=== PATIENT | female | born 1990 | race Caucasian/White ===

== ENCOUNTER 2022-11-07 15:22 | Outpatient (REF) | payer OTHER, SELFPAY ==
--- NOTE | ~2022-11-07 | XR_ITS ---
EXAMINATION: XR HAND/WRIST, RIGHT XR HAND/WRIST, LEFT XR KNEES AP STANDING, BILATERAL XR KNEE, LEFT XR KNEE, RIGHT CLINICAL INFORMATION: Rheumatoid arthritis. COMPARISON: Bilateral knees 02/18/2019. TECHNIQUE: AP bilateral knees standing 1 view. 3 views of each knee. 4 views of each hand. FINDINGS: Bilateral AP Knee: There is mild reduction in medial and lateral compartment joint space both knees. No bony erosive changes, loose bodies or joint effusion seen. Right Knee: There is mild loss of patellofemoral compartment joint space with mild periarticular spurring. No loose body seen. No bony erosive changes. No joint effusion suspected. Left Knee: There is mild loss of patellofemoral compartment joint space with mild periarticular spurring. No joint effusion suspected. No loose bodies or bony erosive changes. Bilateral Hands/Wrists: The joint spaces left hand and left wrist are maintained normal. No extra-articular osteoporosis. No fracture or dislocation. The soft tissues are normal. No abnormal calcification. XR/XR knee standing BI IMPRESSION: 1. Mild degenerative changes bilateral knee.No visible acute fracture, dislocation or subluxation seen. 2. Unremarkable bilateral hand and wrist exam. 3. No loose bodies or joint effusion seen in either knee.
--- NOTE | ~2022-11-07 | XR_ITS ---
EXAMINATION: XR HAND/WRIST, RIGHT XR HAND/WRIST, LEFT XR KNEES AP STANDING, BILATERAL XR KNEE, LEFT XR KNEE, RIGHT CLINICAL INFORMATION: Rheumatoid arthritis. COMPARISON: Bilateral knees 02/18/2019. TECHNIQUE: AP bilateral knees standing 1 view. 3 views of each knee. 4 views of each hand. FINDINGS: Bilateral AP Knee: There is mild reduction in medial and lateral compartment joint space both knees. No bony erosive changes, loose bodies or joint effusion seen. Right Knee: There is mild loss of patellofemoral compartment joint space with mild periarticular spurring. No loose body seen. No bony erosive changes. No joint effusion suspected. Left Knee: There is mild loss of patellofemoral compartment joint space with mild periarticular spurring. No joint effusion suspected. No loose bodies or bony erosive changes. Bilateral Hands/Wrists: The joint spaces left hand and left wrist are maintained normal. No extra-articular osteoporosis. No fracture or dislocation. The soft tissues are normal. No abnormal calcification. XR/XR hand wrist LT IMPRESSION: 1. Mild degenerative changes bilateral knee.No visible acute fracture, dislocation or subluxation seen. 2. Unremarkable bilateral hand and wrist exam. 3. No loose bodies or joint effusion seen in either knee.
--- NOTE | ~2022-11-07 | XR_ITS ---
EXAMINATION: XR HAND/WRIST, RIGHT XR HAND/WRIST, LEFT XR KNEES AP STANDING, BILATERAL XR KNEE, LEFT XR KNEE, RIGHT CLINICAL INFORMATION: Rheumatoid arthritis. COMPARISON: Bilateral knees 02/18/2019. TECHNIQUE: AP bilateral knees standing 1 view. 3 views of each knee. 4 views of each hand. FINDINGS: Bilateral AP Knee: There is mild reduction in medial and lateral compartment joint space both knees. No bony erosive changes, loose bodies or joint effusion seen. Right Knee: There is mild loss of patellofemoral compartment joint space with mild periarticular spurring. No loose body seen. No bony erosive changes. No joint effusion suspected. Left Knee: There is mild loss of patellofemoral compartment joint space with mild periarticular spurring. No joint effusion suspected. No loose bodies or bony erosive changes. Bilateral Hands/Wrists: The joint spaces left hand and left wrist are maintained normal. No extra-articular osteoporosis. No fracture or dislocation. The soft tissues are normal. No abnormal calcification. XR/XR knee LT 3V IMPRESSION: 1. Mild degenerative changes bilateral knee.No visible acute fracture, dislocation or subluxation seen. 2. Unremarkable bilateral hand and wrist exam. 3. No loose bodies or joint effusion seen in either knee.
--- NOTE | ~2022-11-07 | XR_ITS ---
EXAMINATION: XR HAND/WRIST, RIGHT XR HAND/WRIST, LEFT XR KNEES AP STANDING, BILATERAL XR KNEE, LEFT XR KNEE, RIGHT CLINICAL INFORMATION: Rheumatoid arthritis. COMPARISON: Bilateral knees 02/18/2019. TECHNIQUE: AP bilateral knees standing 1 view. 3 views of each knee. 4 views of each hand. FINDINGS: Bilateral AP Knee: There is mild reduction in medial and lateral compartment joint space both knees. No bony erosive changes, loose bodies or joint effusion seen. Right Knee: There is mild loss of patellofemoral compartment joint space with mild periarticular spurring. No loose body seen. No bony erosive changes. No joint effusion suspected. Left Knee: There is mild loss of patellofemoral compartment joint space with mild periarticular spurring. No joint effusion suspected. No loose bodies or bony erosive changes. Bilateral Hands/Wrists: The joint spaces left hand and left wrist are maintained normal. No extra-articular osteoporosis. No fracture or dislocation. The soft tissues are normal. No abnormal calcification. XR/XR hand wrist RT IMPRESSION: 1. Mild degenerative changes bilateral knee.No visible acute fracture, dislocation or subluxation seen. 2. Unremarkable bilateral hand and wrist exam. 3. No loose bodies or joint effusion seen in either knee.
--- NOTE | ~2022-11-07 | XR_ITS ---
EXAMINATION: XR HAND/WRIST, RIGHT XR HAND/WRIST, LEFT XR KNEES AP STANDING, BILATERAL XR KNEE, LEFT XR KNEE, RIGHT CLINICAL INFORMATION: Rheumatoid arthritis. COMPARISON: Bilateral knees 02/18/2019. TECHNIQUE: AP bilateral knees standing 1 view. 3 views of each knee. 4 views of each hand. FINDINGS: Bilateral AP Knee: There is mild reduction in medial and lateral compartment joint space both knees. No bony erosive changes, loose bodies or joint effusion seen. Right Knee: There is mild loss of patellofemoral compartment joint space with mild periarticular spurring. No loose body seen. No bony erosive changes. No joint effusion suspected. Left Knee: There is mild loss of patellofemoral compartment joint space with mild periarticular spurring. No joint effusion suspected. No loose bodies or bony erosive changes. Bilateral Hands/Wrists: The joint spaces left hand and left wrist are maintained normal. No extra-articular osteoporosis. No fracture or dislocation. The soft tissues are normal. No abnormal calcification. XR/XR knee RT 3V IMPRESSION: 1. Mild degenerative changes bilateral knee.No visible acute fracture, dislocation or subluxation seen. 2. Unremarkable bilateral hand and wrist exam. 3. No loose bodies or joint effusion seen in either knee.
[2022-11-07 16:26] LABS: MANUAL DIFF FLAG NO
[2022-11-07 16:29] LABS: Basophils Absolute Auto 0.1 X10*3/uL (0.0-0.2); Basophils Percent Auto 0.7 % (0-2); Eosinophils Absolute Auto 0.6 X10*3/uL (0.0-0.4); Eosinophils Percent Auto 8.1 % (0-4); Hematocrit 38.9 % (37.0-47.0); Hemoglobin 13.2 g/dl (12.0-16.0); Imm Gran Abs Auto 0.01 X10*3/uL (0.00-0.03); Imm Gran Pct Auto 0.1 % (0.0-0.4); Lymphocytes Absolute Auto 2.5 X10*3/uL (1.2-4.9); Lymphocytes Percent Auto 35.5 % (20-40); Mean Corpuscular HGB Conc 33.9 g/dl (31.0-35.0); Mean Corpuscular Hemoglobin 30.3 pg (27.0-33.0); Mean Corpuscular Volume 89.2 fL (80.0-98.0); Mean Platelet Volume 9.7 fL (9.4-12.3); Monocytes Absolute Auto 0.4 X10*3/uL (0.1-1.2); Neutrophils Absolute Auto 3.4 x10*3/uL (2.0-8.3); Neutrophils Percent Auto 49.6 % (45-73); Platelet Count 330 X10*3/uL (160-400); Red Blood Count 4.36 X10*6/uL (4.20-5.50); Red Cell Distribution Width 11.9 % (11.0-16.0)
[2022-11-07 17:01] LABS: Alanine Aminotransferase 10 U/L (0-31); Albumin Level 4.2 g/dL (3.5-5.0); Alkaline Phosphatase 61 U/L (39-117); Anion Gap 14 (12-20); Aspartate Amino Transferase 16 U/L (5-31); Bilirubin Total 0.6 mg/dL (0.0-1.0); Blood Urea Nitrogen 13 mg/dL (9-16); C Reactive Protein < 0.04 mg/dL (< or = 0.50); Calcium 9.5 mg/dL (8.4-10.2); Carbon Dioxide 23 mmol/L (22-29); Chloride 106 mmol/L (96-108); Cholesterol 206 mg/dL; Estimated Glomerular Filt Rate > 60; Glucose Fasting 77 mg/dL (60-99); Glucose Random 77 mg/dL (60-115); HDL Cholesterol 63 mg/dL; LDL Cholesterol Calculated 133 mg/dl; Potassium 3.9 mmol/L (3.3-5.1); Sodium 139 mmol/L (135-145); Total Protein 7.1 g/dL (6.5-8.0); Triglycerides 50 mg/dL
[2022-11-07 17:11] LABS: Erythrocyte Sedimentation Rate 4 MM/HR (0-20)
[2022-11-07 17:14] LABS: TSH reflex Free T4 1.51 uIU/mL (0.32-4.0)
[2022-11-09 17:28] LABS: Prot Elec - Albumin 4.2 g/dL (3.8-4.8); Prot Elec - Alpha1 0.3 g/dL (0.2-0.3); Prot Elec - Alpha2 0.5 g/dL (0.5-0.9); Prot Elec - Beta 1 0.4 g/dL (0.4-0.6); Prot Elec - Beta 2 0.3 g/dL (0.2-0.5); Prot Elec - Gamma 1.1 g/dL (0.8-1.7); Prot Elec - Total Protein 6.8 g/dL (6.1-8.1)
[2022-11-10 04:36] LABS: HBS Num1 26.89 mIU/mL (0-7.99); HBc Num1 0.06 S/CO (0.00-0.79); HBsAGNum1 0.39 S/CO (0.00-0.99); Hepatitis B Core Antibody Nonreactive (Nonreactive); Hepatitis B Surface Antigen Negative (Negative); ~HepC Num1 0.08 S/CO (0.00-0.79); ~Hepatitis A Antibody IgM Nonreactive (Nonreactive); ~Hepatitis B Surface Antibody REACTIVE (Nonreactive); ~Hepatitis C Antibody Nonreactive (Nonreactive)
[2022-11-10 15:23] LABS: TS Negative Control Passed; TS Panel A 0; TS Panel B 0; TS Positive Control Passed; TSpotTB Negative (Negative)
[2022-11-10 20:59] LABS: IgA 226 mg/dL (47-310); IgG 1187 mg/dL (600-1640); IgM 208 mg/dL (50-300)
[2022-11-13 06:37] LABS: IgA 233 mg/dL (47-310); IgG 1214 mg/dL (600-1640); IgM 214 mg/dL (50-300)
== END 2022-11-07 15:23 | disposition home or self-care (01) ==
LOC: HO.LAB 15:22
PROVIDERS: PCP Internal Medicine; Visit Provider Student in an Organized Health Care Education/Training Program
DX: Z00.00 Encounter for general adult medical examination without abnormal findings (principal); Z11.7 Encounter for testing for latent tuberculosis infection; Z11.59 Encounter for screening for other viral diseases; M06.9 Rheumatoid arthritis, unspecified; J45.909 Unspecified asthma, uncomplicated; M60.9 Myositis, unspecified; Z79.899 Other long term (current) drug therapy; Z72.89 Other problems related to lifestyle
CPT/HCPCS: 36415; 73110; 73130; 73562; 73564; 73565; 80053; 80061; 82784; 84165; 84443; 85025; 85652; 86140; 86334; 86481; 86704; 86706; 86709; 86803; 87340

== ENCOUNTER 2022-11-07 15:22 | Outpatient (AMB) | payer OTHER, MEDICAID, SELFPAY ==
--- NOTE | 2022-11-07 15:27 | MHC.OFFVIS ---
Intake Vital Signs 11/07/22 15:29 Height 5 ft 5 in Weight 134 lb 7.712 oz BMI 22.4 BP 110/72 Blood Pressure Location Rt brachial Position Sitting Pulse 84 Temp 97.8 F Temp Source Skin Pulse Oximetry (%) 98 Intake Visit Reasons: RA Intake Note: New pt presents today for RA consult. Failed Humira after 10 months of treatment. Was started on Enbrel weekly, but then did not have a attendance officer- last used over a year ago. Manager Background Required: No Accompanied by: Self / Same As Patient Allergies seafood Allergy (Unknown, Verified 11/07/22 15:31) Unknown Medication List - Last Reconciled 11/07/22 by Shaggy Arita MD albuterol sulfate 90 mcg/actuation (Ventolin HFA) 2 puffs inhalation Q6H Breo Ellipta 100-25 mcg/dose (fluticasone furoate-vilanterol) 1 inh inhalation DAILY NS diclofenac potassium 50 mg PO TID PRN HPI HPI Comments History of Present Illness Details This is a 31-year-old female with a seronegative arthritis who presents as a new patient. Patient was diagnosed with rheumatoid arthritis back in 2019 and was started on hydroxychloroquine, shortly after Humira was added which worked well for 10 months then it stopped working, she was switched to Enbrel in January of 2021 with excellent response. She took it for about 6 months then her attendance officer left the practice. Currently patient is not on any DMARDs. She is having pain and stiffness mostly in her knees, she also gets intermittent pain in her right wrist and bilateral fingers associated with morning stiffness lasting 1 hour. Patient stated that her arthritis symptoms started when she was a child, she had surgery for her left knee, she also had surgery for her right wrist in 2019. She denies any history of DVT/PE. Denies history of recurrent miscarriages. [facility] Medical History Annual physical exam Normal Pap smear Rheumatoid arthritis Surgical History H/O hand surgery H/O left knee surgery H/O right knee surgery History of section Family History Father HTN (hypertension) Mother No problems noted. Other Family history of rheumatoid arthritis Social History Household Members: Spouse and Children Household Members Other:: , 11yo son with autism, 4 yo daughter Housing: House Alcohol intake: current Alcohol intake frequency: holidays/special occasions only Patient Tobacco Use Status: Never used Tobacco Current occupational status: employed Current occupation: Owns Daycare Cognitive needs: No Hearing needs: No Vision needs: Yes Female Reproductive History Menstrual Total pregnancies: 2 Number of Living Children: 2 Review of Systems Const Reports fatigue and Reports weakness Resp Reports wheezing Musc Reports arthralgias, Reports joint swelling and Reports stiffness Skin/Breast Reports unusual bruising Neuro Reports weakness Endo Reports fatigue Aller/Immun Reports wheezing Physical Exam Vital Signs: Last Vital Signs Temp 97.8 F 11/07/22 15:29 Pulse 84 11/07/22 15:29 BP 110/72 11/07/22 15:29 Pulse Ox 98 11/07/22 15:29 BMI result Body Mass Index 22.4 Const General: cooperative, healthy appearing and comfortable Nutritional Appearance: average body habitus Orientation/consciousness: patient oriented x3 Limitations: no limitations HEENT Head: Yes normocephalic and Yes atraumatic Mouth: moist mucous membranes Resp Effort & Inspection: normal respiratory effort and able to speak in complete sentences Auscultation: clear to auscultation bilaterally Cardio Rate: regular rate Rhythm: regular rhythm Neuro General: patient oriented x3 Extrem Other: Right wrist tenderness and pain with full flexion and extension Few tender PIP is bilaterally No left wrist tenderness, swelling or pain with range of motion Normal range of motion of both elbows and shoulders with no pain Left knee warmth Bilateral knee crepitus Left knee pain with full flexion Left ankle warmth without swelling or tenderness Negative MTP squeeze test bilaterally Results Reviewed Results Reviewed: X-RAY KNEE 3 VIEW - W/O INJURY Exam Date: 04/18/2019 5:18 PM Ordering Diagnosis: Bilateral chronic knee pain ? History: Bilateral chronic knee pain. ? Bilateral knees, 3 views each: ? FINDINGS: Bony structures are radiographically intact. ? There is minor spurring of the medial femoral tibial compartment of each knee. ? There are bilateral knee joint effusions, moderate on the left and small on the right. ? Soft tissues are unremarkable. ? Impression: Bilateral knee joint effusions, left greater than right. ? Minor degenerative changes of both knees as described. ? Reading Radiologist: labs from 2019 [employer] /SSA/SSB/RF/CCP/C3/C4/Sm/[employer] J[employer] SOFTWARE ENGINEER all negative/normal Assessment & Plan Assessment & Plan (1) Rheumatoid arthritis: Comment: Seronegative dx 2019 HCQ 05/2019-09/2021 lost her attendance officer Humira 2020 secondary nonresponse switched to Enbrel 01/2021 effective then lost to follow-up 09/2021 Code(s): M06.9 - Rheumatoid arthritis, unspecified Qualifiers: Rheumatoid arthritis location: multiple sites Rheumatoid factor presence: without rheumatoid factor Qualified Code(s): M06.09 - Rheumatoid arthritis without rheumatoid factor, multiple sites Plan: This is a 31-year-old female with seronegative arthritis who presents as a new patient. Her previous attendance officer left the practice. Patient was officially diagnosed in 2019 with seronegative RA however per patient she started having arthritis symptoms since age for when she had left knee surgery, she also had right wrist surgery in 2018. Patient is currently having active synovitis. Will need to restart DMARDs. Hydroxychloroquine was inadequate and patient had secondary nonresponse to Humira. Was doing very well on Enbrel. She would like to see restart Enbrel. Will start prior authorization for Enbrel. Check labs today and check x-rays of involved joints. Check Infectious screening labs Blood work before next visit in 3 months Plan I spent 46 minutes reviewing patient's chart, evaluating patient, ordering diagnostic workup, counseling patient and documenting in the chart Orders: Orders Comprehensive Met. Panel Today M06.9 - Rheumatoid arthritis, unspecified C Reactive Protein Today M06.9 - Rheumatoid arthritis, unspecified Complete Blood Count Auto Diff Today M06.9 - Rheumatoid arthritis, unspecified Erythrocyte Sedimentation Rate Today M06.9 - Rheumatoid arthritis, unspecified Immunofixation Pnl, Serum Today M06.9 - Rheumatoid arthritis, unspecified Protein Electrophoresis, Serum Today M06.9 - Rheumatoid arthritis, unspecified Hepatitis A,B,C Profile Today Z11.59 - Encounter for screening for other viral diseases T Spot TB Today Z11.7 - Encounter for testing for latent tuberculosis infection XR hand wrist LT Today M06.9 - Rheumatoid arthritis, unspecified XR hand wrist RT Today M06.9 - Rheumatoid arthritis, unspecified XR knee LT 3V Today M06.9 - Rheumatoid arthritis, unspecified XR knee RT 3V Today M06.9 - Rheumatoid arthritis, unspecified XR knee standing BI Today M06.9 - Rheumatoid arthritis, unspecified Coding Level of Care Code New Pt Level 4 (42562) Diagnoses Rheumatoid arthritis M06.09 Rheumatoid arthritis location: multiple sites Rheumatoid factor presence: without rheumatoid factor
[2022-11-07 15:29] VITALS: BP 110/72; PULSE 84; TEMP 36.6; O2SAT 98; BMI 22.4
== END 2022-11-07 16:00 | disposition home or self-care (01) ==
LOC: HO.RHE 15:23
PROVIDERS: PCP Internal Medicine; Visit Provider Student in an Organized Health Care Education/Training Program
DX: M06.09 Rheumatoid arthritis without rheumatoid factor, multiple sites (principal)
CPT/HCPCS: 99204

== ENCOUNTER 2022-12-26 15:27 | Outpatient (REF) | payer OTHER, SELFPAY ==
--- NOTE | 2022-12-26 16:42 | PFT_ITS ---
INDICATION: Asthma. SPIROMETRY: FEV1 to FVC 68% pre bronchodilators, 71% post bronchodilators with an FEV1 of 2.28 L, which is 70% predicted and FVC of 3.23 L, which is 83% predicted. No significant response to bronchodilators noted. Although [id number] was decreased down to 37% predicted. Maximum voluntary ventilation 57% predicted. LUNG VOLUMES: Total lung capacity 106% predicted with a residual volume of 166% predicted. DIFFUSION CAPACITY: DLCO of 76% predicted. COMPARISONS: None. INTERPRETATION: There appears to be a reversible obstructive ventilatory defect consistent with a diagnosis of asthma, although it is only partially revering at this point based on her age. The patient also has significant small airway disease suggestive of the severity of the asthma. No significant response to bronchodilators, however. Patient has a moderate decrease in maximum voluntary ventilation, which could be secondary to deconditioning and also worsening dynamic inspiratory capacity from her air trapping. Lung volumes do demonstrate significant air trapping as stated above, and the patient does have a mild diffusion impairment. Clinical correlation warranted. MD CALVIN Hendrickson/MODL / [id number]
== END 2022-12-26 15:28 | disposition home or self-care (01) ==
LOC: HO.RESP 15:27
PROVIDERS: PCP Internal Medicine; Visit Provider Internal Medicine
DX: J45.909 Unspecified asthma, uncomplicated (principal)
CPT/HCPCS: 94010; 94727; 94729

== ENCOUNTER → 2022-12-26 16:42 | Outpatient (BNV) | payer OTHER, SELFPAY | PROVIDERS: PCP Internal Medicine; Visit Provider Hospitalist | DX: J45.909 Unspecified asthma, uncomplicated (principal) | CPT/HCPCS: 94060; 94727; 94729 ==

== ENCOUNTER 2023-01-23 16:01 | Outpatient (AMB) | payer OTHER, MEDICAID, SELFPAY ==
[2023-01-23 16:04] VITALS: BP 102/60; PULSE 81; TEMP 36.8; O2SAT 97; BMI 23.4
--- NOTE | 2023-01-23 16:04 | MHC.OFFVIS ---
Intake Vital Signs 01/23/23 16:04 Height 5 ft 5 in Weight 140 lb 14.006 oz BMI 23.4 BP 102/60 Blood Pressure Location Rt brachial Position Sitting Pulse 81 Pulse Source Pulse Oximeter Temp 98.2 F Temp Source Skin Pulse Oximetry (%) 97 Intake Visit Reasons: RA Allergies seafood Allergy (Unknown, Verified 01/23/23 16:07) Unknown Medication List - Last Reconciled 01/23/23 by Shaggy Arita MD albuterol sulfate 90 mcg/actuation (Ventolin HFA) 2 puffs inhalation Q6H Breo Ellipta 100-25 mcg/dose (fluticasone furoate-vilanterol) 1 inh inhalation DAILY NS etanercept (Enbrel SureClick) 50 mg subcut QWEEK prednisone 3 tabs daily for 1 week then 2 tabs daily for 1 week then 1 tab daily for 1 week then stop HPI HPI Comments History of Present Illness Details 32-year-old female with seronegative RA returns for follow-up. Enbrel was approved but unfortunately patient has not been able to receive it yet. Stated that the pharmacy did not contact her. She continues to have right wrist pain, pain in the PIP is as well as both knees. Recently she has been having mid back pain. 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 Initial history: This is a 31-year-old female with a seronegative arthritis who presents as a new patient. Patient was diagnosed with rheumatoid arthritis back in 2019 and was started on hydroxychloroquine, shortly after Humira was added which worked well for 10 months then it stopped working, she was switched to Enbrel in January of 2021 with excellent response. She took it for about 6 months then her director of event sales left the practice. Currently patient is not on any DMARDs. She is having pain and stiffness mostly in her knees, she also gets intermittent pain in her right wrist and bilateral fingers associated with morning stiffness lasting 1 hour. Patient stated that her arthritis symptoms started when she was a child, she had surgery for her left knee, she also had surgery for her right wrist in 2019. She denies any history of DVT/PE. Denies history of recurrent miscarriages. [facility], [facility] Medical History Annual physical exam Normal Pap smear Surgical History H/O hand surgery H/O left knee surgery H/O right knee surgery History of section Family History Father HTN (hypertension) Mother No problems noted. Other Family history of rheumatoid arthritis Social History Household Members: Spouse and Children Household Members Other:: , 11yo son with autism, 4 yo daughter Housing: House Alcohol intake: current Alcohol intake frequency: holidays/special occasions only Patient Tobacco Use Status: Never used Tobacco Current occupational status: employed Current occupation: Owns Daycare Cognitive needs: No Hearing needs: No Vision needs: Yes Review of Systems Musc Reports arthralgias, Reports joint swelling and Reports stiffness Physical Exam Vital Signs: Last Vital Signs Temp 98.2 F 01/23/23 16:04 Pulse 81 01/23/23 16:04 BP 102/60 01/23/23 16:04 Pulse Ox 97 01/23/23 16:04 BMI result Body Mass Index 23.4 Const General: cooperative, healthy appearing and comfortable Nutritional Appearance: average body habitus Limitations: no limitations HEENT Head: Yes normocephalic and Yes atraumatic Resp Effort & Inspection: normal respiratory effort and able to speak in complete sentences Extrem Other: Right wrist tenderness and pain with full flexion and extension Few tender PIPs bilaterally No left wrist tenderness, swelling or pain with range of motion Normal range of motion of both elbows and shoulders with no pain Left knee warmth Bilateral knee crepitus Left knee pain with full flexion Negative MTP squeeze test bilaterally Results Reviewed Results Reviewed: X-RAY KNEE 3 VIEW - W/O INJURY Exam Date: 04/18/2019 5:18 PM Ordering Diagnosis: Bilateral chronic knee pain ? History: Bilateral chronic knee pain. ? Bilateral knees, 3 views each: ? FINDINGS: Bony structures are radiographically intact. ? There is minor spurring of the medial femoral tibial compartment of each knee. ? There are bilateral knee joint effusions, moderate on the left and small on the right. ? Soft tissues are unremarkable. ? Impression: Bilateral knee joint effusions, left greater than right. ? Minor degenerative changes of both knees as described. ? 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 HCQ 05/2019-09/2021 lost her director of event sales [employer] 2020 secondary nonresponse switched to Enbrel 01/2021 effective then lost to follow-up 09/2021 Code(s): M06.9 - Rheumatoid arthritis, unspecified Qualifiers: Rheumatoid arthritis location: multiple sites Rheumatoid factor presence: without rheumatoid factor Qualified Code(s): M06.09 - Rheumatoid arthritis without rheumatoid factor, multiple sites Plan: This is a 32-year-old female with seronegative arthritis who presents for follow-up. Patient is not doing well with multiple swollen and tender joints. Last visit a plan was to restart her Enbrel. Enbrel was approved 2 months ago, apparently the specialty pharmacy did not receive the prior authorization information. Today the director of medical review contacted the pharmacy and they received a prior authorization. Patient should receive her Enbrel next week. Will prescribe prednisone taper for relief. Labs before next visit in 3 months Plan I spent 16 minutes reviewing patient's chart, evaluating patient, ordering diagnostic workup, counseling patient and documenting in the chart Orders: Orders Complete Blood Count Auto Diff 3 Months M06.9 - Rheumatoid arthritis, unspecified Comprehensive Met. Panel Today M06.9 - Rheumatoid arthritis, unspecified C Reactive Protein Today M06.9 - Rheumatoid arthritis, unspecified Erythrocyte Sedimentation Rate Today M06.9 - Rheumatoid arthritis, unspecified Medications: New prednisone 3 tabs daily for 1 week then 2 tabs daily for 1 week then 1 tab daily for 1 week then stop 42 tabs 0RF Coding Level of Care Code Est Pt Level 3 (43864) Diagnoses Rheumatoid arthritis of multiple sites with negative rheumatoid factor M06.09 Rheumatoid arthritis location: multiple sites Rheumatoid factor presence: without rheumatoid factor
== END 2023-01-23 16:21 | disposition home or self-care (01) ==
PROVIDERS: PCP Internal Medicine; Visit Provider Student in an Organized Health Care Education/Training Program
DX: M06.09 Rheumatoid arthritis without rheumatoid factor, multiple sites (principal)
CPT/HCPCS: 99213

== ENCOUNTER 2023-01-23 16:01 | Outpatient (REF) | payer OTHER, SELFPAY ==
[2023-01-23 16:39] LABS: MANUAL DIFF FLAG NO
[2023-01-23 17:10] LABS: Basophils Absolute Auto 0.1 X10*3/uL (0.0-0.2); Basophils Percent Auto 0.7 % (0-2); Eosinophils Absolute Auto 0.6 X10*3/uL (0.0-0.4); Eosinophils Percent Auto 6.4 % (0-4); Hematocrit 38.9 % (37.0-47.0); Hemoglobin 13.3 g/dl (12.0-16.0); Imm Gran Abs Auto 0.02 X10*3/uL (0.00-0.03); Imm Gran Pct Auto 0.2 % (0.0-0.4); Lymphocytes Absolute Auto 2.3 X10*3/uL (1.2-4.9); Lymphocytes Percent Auto 25.4 % (20-40); Mean Corpuscular HGB Conc 34.2 g/dl (31.0-35.0); Mean Corpuscular Hemoglobin 30.2 pg (27.0-33.0); Mean Corpuscular Volume 88.2 fL (80.0-98.0); Mean Platelet Volume 10.4 fL (9.4-12.3); Monocytes Absolute Auto 0.6 X10*3/uL (0.1-1.2); Neutrophils Absolute Auto 5.4 x10*3/uL (2.0-8.3); Neutrophils Percent Auto 60.3 % (45-73); Platelet Count 309 X10*3/uL (160-400); Red Blood Count 4.41 X10*6/uL (4.20-5.50); Red Cell Distribution Width 11.9 % (11.0-16.0)
[2023-01-23 17:39] LABS: Alanine Aminotransferase 13 U/L (0-31); Albumin Level 4.2 g/dL (3.5-5.0); Alkaline Phosphatase 62 U/L (39-117); Anion Gap 12 (12-20); Aspartate Amino Transferase 16 U/L (5-31); Bilirubin Total 0.5 mg/dL (0.0-1.0); Blood Urea Nitrogen 18 mg/dL (9-16); C Reactive Protein 0.14 mg/dL (< or = 0.50); Calcium 9.2 mg/dL (8.4-10.2); Carbon Dioxide 24 mmol/L (22-29); Chloride 106 mmol/L (96-108); Estimated Glomerular Filt Rate > 60; Glucose Random 90 mg/dL (60-115); Potassium 3.8 mmol/L (3.3-5.1); Sodium 138 mmol/L (135-145); Total Protein 7.5 g/dL (6.5-8.0)
[2023-01-23 17:58] LABS: Erythrocyte Sedimentation Rate 10 MM/HR (0-20)
== END 2023-01-23 16:02 | disposition home or self-care (01) ==
LOC: HO.LAB 16:01
PROVIDERS: PCP Internal Medicine; Visit Provider Student in an Organized Health Care Education/Training Program
DX: M06.09 Rheumatoid arthritis without rheumatoid factor, multiple sites (principal); Z79.899 Other long term (current) drug therapy
CPT/HCPCS: 36415; 80053; 85025; 85652; 86140

== ENCOUNTER 2023-06-19 21:54 | Emergency (ER) | payer OTHER, MEDICAID, SELFPAY ==
--- NOTE | ~2023-06-19 | XR_ITS ---
EXAMINATION: XR KNEE, RIGHT CLINICAL INFORMATION: Trauma COMPARISON: Previous x-ray October 2022 TECHNIQUE: Three views of the right knee. FINDINGS: Bone alignment is normal. No fracture or dislocation. Mild degenerative changes at the medial femoral tibial joint. Large joint effusion. XR/XR knee RT 2V IMPRESSION: Large joint effusion. Mild degenerative changes.
--- NOTE | ~2023-06-19 | XR_ITS ---
EXAMINATION: XR TIBIA AND FIBULA, RIGHT CLINICAL INFORMATION: Pain, trauma COMPARISON: None available. TECHNIQUE: AP and lateral views of the right tibia and fibula were obtained. FINDINGS: Alignment at the knee and ankle appears anatomic on these views. No acute fracture is seen. No significant focal soft tissue abnormality identified. XR/XR tibia fibula RT 2V IMPRESSION: No acute findings identified.
[2023-06-19 22:04] VITALS: BP 124/82; PULSE 79; RESP 18; TEMP 36.8; O2SAT 100; BMI 21.6
--- NOTE | 2023-06-20 00:03 | ED_ITS ---
HPI - General Adult General Chief complaint: Extremity Injury, Lower Stated complaint: cant stand, someone fell on her Time Seen by Provider: 06/19/23 23:56 History of Present Illness HPI narrative: The patient is a 32-year-old woman who was participating in a [employer] class. Apparently another person in the class fell on her and struck her in the right lower leg. She indicates that the impact of the blow was mostly at the mid level of the lateral aspect of the right lower leg. She says that the blow was not delivered with a great deal of force but she has had significant pain since. She has no numbness or tingling in the foot. She has pain with moving the ankle. Related Data Previous Rx's Medication Instructions Recorded Breo Ellipta 100 mcg-25 mcg/dose 1 inh inhalation DAILY #60 ea 08/05/22 powder for inhalation (fluticasone furoate-vilanterol) etanercept 50 mg/mL (1 mL) 50 mg subcut QWEEK #12 mL 11/20/22 subcutaneous pen injector (Enbrel SureClick) albuterol sulfate 90 mcg/actuation 2 puff inhalation Q6H #8.5 grams 01/19/23 aerosol inhaler (Ventolin HFA) prednisone 10 mg tablet See Rx Instructions PO .COMPLEX 01/23/23 #42 tabs Allergies Allergy/AdvReac Type Severity Reaction Status Date / Time seafood Allergy Unknown Unknown Verified 06/19/23 22:04 Review of Systems Review of Systems: Yes all other systems are reviewed and are negative PMFSH Past Medical History Medical History Annual physical exam Normal Pap smear Surgical History H/O hand surgery H/O left knee surgery H/O right knee surgery History of section Family History Family History Father HTN (hypertension) Mother No problems noted. Other Family history of rheumatoid arthritis Social History Social History Household Members: Spouse and Children Household Members Other:: , 11yo son with autism, 4 yo daughter Housing: House Alcohol intake: current Alcohol intake frequency: holidays/special occasions only Patient Tobacco Use Status: Never used Tobacco Advance Directives: No Advance Directives Information Provided: No Current occupational status: employed Current occupation: Owns Daycare Cognitive needs: No Hearing needs: No Vision needs: Yes Physical Exam ED Vital Signs: Vital Signs - 24 hr 06/19/23 22:04 Temperature 98.2 F Pulse Rate 79 Respiratory Rate 18 Blood Pressure 124/82 Pulse Oximetry 100 Oxygen Delivery Method Room Air BMI result Body Mass Index 21.6 Const Other: The patient is awake and alert. She does not appear in obvious distress or discomfort. She was reading a book and did not seem uncomfortable at all at rest. HENMT Other: Face is symmetrical and unremarkable Eyes Other: No scleral icterus Resp Effort & Inspection: normal respiratory effort Skin Other: No obvious bruising or discoloration to the right lower leg or knee. Skin is intact. Neuro Other: The patient is awake and alert and appropriate. She has normal sensation in the right foot. She can wiggle all of her toes easily. Movement of the right foot is limited by pain but she seems neurologically intact. Extrem Other: Excellent dorsalis pedis pulse in the right foot. There is tenderness along the lateral aspect of the right lower leg without deformity. She is most tender at approximately the fibular midshaft region of the right lower leg. Muscular compartments are tender but did not seem full or tense in any way. She can move the knee fairly well without significant discomfort and I do not clinically appreciate the presence of an effusion. She is able to move the ankle but ankle movement seems to significantly exacerbate the pain at the lateral lower leg. Medications Administered Discontinued Medications Generic Name Dose Route Start Last Admin Trade Name Rupesh PRN Reason Stop Dose Admin Acetaminophen 975 mg 06/20/23 00:54 06/20/23 01:49 Acetaminophen 325 Mg Tablet PO 06/20/23 00:55 975 mg ONCE ONE Administration Ketorolac Tromethamine 30 mg 06/20/23 00:54 06/20/23 01:50 Ketorolac Tromethamine 30 Mg/Ml Vial IM 06/20/23 00:55 30 mg ONCE ONE Administration Medical Decision Making Medical Decision Making MDM Narrative: The patient is a 32-year-old female who sustained an injury to the right leg at a [employer] class when another student fell against the lateral aspect of her right leg. A knee x-ray has been ordered at triage and this was read as showing a large effusion. On my exam the patient's knee seemed fairly benign. She seemed more tender in the mid fibular region of the right leg. We obtained a tibia and fibular x-ray which was negative. The patient's knee x-ray was somewhat confounded by clothing that had been pushed up above the right knee. I am not certain that there is an effusion. I think the main problem is in the midportion of the lateral aspect of the right lower leg. I think she has a bad bruise to this portion of the leg. Clinically I do not think she has a compartment syndrome. She looks comfortable at rest and was simply reading a book when not examined. Her compartments did not feel firm. She has no numbness in the foot. The patient will be discharged with crutches and nonweightbearing on the right leg and should rest and elevate and ice the leg over the weekend. I explained the I thought compartment syndrome was unlikely but that if she has any significant worsening of the pain she needs to return immediately. She was given the contact information for the orthopedic office for follow-up next week Discharge Plan Discharge Clinical Impression: Contusion of right lower leg Patient Disposition: Home, Self-Care Additional Instructions: I think you have a bad bruise to the right lower leg. No fractures are seen on your x-rays. Please plan on resting and taking it easy for the next couple of days. Over the weekend you should not put any weight on the foot. You should use crutches when you get around. However for the most part you should simply be resting and elevating the leg. Use a large ice bag for about 20 minutes at a time every couple of hours. Use ibuprofen and acetaminophen as needed for pain. Please plan on following up with the orthopedic office, Dr. Patino's office. It is very important that if you feel your pain gets significantly worse at any time that you return to the emergency room for re-evaluation Prescriptions: No Action fluticasone furoate-vilanterol [Breo Ellipta] 100-25 mcg/dose blister with device 1 inh inhalation DAILY Qty: 60 3RF Enbrel SureClick 50 mg/mL (1 mL) pen injector 50 mg subcut QWEEK Qty: 12 1RF albuterol sulfate [Ventolin HFA] 90 mcg/actuation HFA aerosol inhaler 2 puff inhalation Q6H Qty: 8.5 3RF prednisone 10 mg tablet See Rx Instructions PO .COMPLEX Qty: 42 0RF Rx Instructions: 3 tabs daily for 1 week then 2 tabs daily for 1 week then 1 tab daily for 1 week then stop Referrals: Kyree Patino MD [Physician] - (Right lower leg contusion. Right knee x-ray read as showing an effusion.) Interventions: ED Discharge Assessment Last Done: 06/20/23 02:03 Discharge Date/Time: 06/20/23 02:14
[2023-06-20] MEDS: Acetaminophen 325 MG TABLET 975 MG PO (01:49)
[2023-06-20] MEDS: Ketorolac Tromethamine 30 MG/ML VIAL IM (01:50)
== END 2023-06-20 02:14 | disposition home or self-care (01) ==
PROVIDERS: Emergency Provider Emergency Medicine; PCP Internal Medicine
DX: S80.11XA Contusion of right lower leg, initial encounter (principal); W50.0XXA Accidental hit or strike by another person, initial encounter; Y93.75 Activity, martial arts; Y92.9 Unspecified place or not applicable; Y99.9 Unspecified external cause status
CPT/HCPCS: 73560; 73590; 96372; 99283; 99284; J1885

== ENCOUNTER 2023-06-22 15:21 | Outpatient (REF) | payer OTHER, SELFPAY ==
[2023-06-22 16:46] LABS: Erythrocyte Sedimentation Rate 9 MM/HR (0-20)
== END 2023-06-22 15:22 | disposition home or self-care (01) ==
LOC: HO.LAB 15:21
PROVIDERS: Visit Provider Student in an Organized Health Care Education/Training Program
DX: M06.09 Rheumatoid arthritis without rheumatoid factor, multiple sites (principal)
CPT/HCPCS: 36415; 85652

== ENCOUNTER 2023-06-22 16:00 | Outpatient (AMB) | payer OTHER, MEDICAID, SELFPAY ==
--- NOTE | 2023-06-22 16:02 | A.OFFVIS_ITS ---
Intake Vital Signs 06/22/23 16:11 Height 5 ft 5 in BP 138/76 Blood Pressure Location Lt brachial Position Sitting Pulse 72 Pulse Source Pulse Oximeter Pulse Oximetry (%) 96 Oxygen Delivery Method Room Air Intake Visit Reasons: RA Intake Note: Pt last seen 01/23/23 presents today for follow up and test results. Crystalizer Operator Required: No Accompanied by: Self / Same As Patient Allergies seafood Allergy (Unknown, Verified 06/22/23 16:02) Unknown Medication List - Last Reconciled 06/22/23 by Shaggy Arita MD albuterol sulfate 90 mcg/actuation (Ventolin HFA) 2 puffs inhalation Q6H Breo Ellipta 100-25 mcg/dose (fluticasone furoate-vilanterol) 1 inh inhalation DAILY NS etanercept (Enbrel SureClick) 50 mg subcut QWEEK HPI HPI Comments History of Present Illness Details 32-year-old female with seronegative RA returns for follow-up. Patient states that after last visit she received Enbrel for February and March, did not receive it afterwards. She stated that they should call the clinic a few times and she was not able to get an answer until last week. She has a new prior authorization. She was doing quite well when she was taking Enbrel until she ran out and she has been having pain in both hands and knees. Patient stated that she has been having pain on the outer aspect of her right santiago for a few months. 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 She went to the emergency room last week and right knee x-ray showed large effusion, tip fibula x-ray was unremarkable. She is now walking using crutches Initial history: This is a 31-year-old female with a seronegative arthritis who presents as a new patient. Patient was diagnosed with rheumatoid arthritis back in 2019 and was started on hydroxychloroquine, shortly after Humira was added which worked well for 10 months then it stopped working, she was switched to Enbrel in January of 2021 with excellent response. She took it for about 6 months then her senior hydrogeologist left the practice. Currently patient is not on any DMARDs. She is having pain and stiffness mostly in her knees, she also gets intermittent pain in her right wrist and bilateral fingers associated with morning stiffness lasting 1 hour. Patient stated that her arthritis symptoms started when she was a child, she had surgery for her left knee, she also had surgery for her right wrist in 2019. She denies any history of DVT/PE. Denies history of recurrent miscarriages. [facility] Medical History Annual physical exam Normal Pap smear Surgical History H/O hand surgery H/O left knee surgery H/O right knee surgery History of section Family History Father HTN (hypertension) Mother No problems noted. Other Family history of rheumatoid arthritis Social History Household Members: Spouse and Children Household Members Other:: , 11yo son with autism, 4 yo daughter Housing: House Alcohol intake: current Alcohol intake frequency: holidays/special occasions only Patient Tobacco Use Status: Never used Tobacco Current occupational status: employed Current occupation: Owns Daycare Cognitive needs: No Hearing needs: No Vision needs: Yes Review of Systems Musc Reports arthralgias, Reports joint swelling and Reports stiffness Physical Exam Const General: cooperative, healthy appearing and comfortable Nutritional Appearance: average body habitus Limitations: no limitations HEENT Head: Yes normocephalic and Yes atraumatic Resp Effort & Inspection: normal respiratory effort and able to speak in complete sentences Extrem Other: Right wrist tenderness and pain with full flexion and extension Few tender PIPs bilaterally No left wrist tenderness, swelling or pain with range of motion Normal range of motion of both elbows and shoulders with no pain Left knee warmth Bilateral knee crepitus Pain on the outer aspect of her right santiago Left knee pain with full flexion Negative MTP squeeze test bilaterally Results Reviewed Results Reviewed: X-RAY KNEE 3 VIEW - W/O INJURY Exam Date: 04/18/2019 5:18 PM Ordering Diagnosis: Bilateral chronic knee pain ? History: Bilateral chronic knee pain. ? Bilateral knees, 3 views each: ? FINDINGS: Bony structures are radiographically intact. ? There is minor spurring of the medial femoral tibial compartment of each knee. ? There are bilateral knee joint effusions, moderate on the left and small on the right. ? Soft tissues are unremarkable. ? Impression: Bilateral knee joint effusions, left greater than right. ? Minor degenerative changes of both knees as described. ? Reading Radiologist: labs from 2019 [employer] /SSA/SSB/RF/CCP/C3/C4/Sm/PERSONAL COMPUTER NETWORK ANALYST all negative/normal I independently reviewed tib/fib x-rays from 06/19/2023 which showed no fractures Assessment & Plan Assessment & Plan (1) Rheumatoid arthritis: Comment: officially diagnosed in 2019 with seronegative RA however per patient she started having arthritis symptoms since age 2 when she had left knee surgery, she also had right wrist surgery in 2019. HCQ 05/2019-09/2021 lost her senior hydrogeologist Garima 2020 secondary nonresponse switched to Enbrel 01/2021 effective then lost to follow-up 09/2021 Enbrel restarted 02/2023 effective Code(s): M06.9 - Rheumatoid arthritis, unspecified Qualifiers: Rheumatoid arthritis location: multiple sites Rheumatoid factor presence: without rheumatoid factor Qualified Code(s): M06.09 - Rheumatoid arthritis without rheumatoid factor, multiple sites Plan: This is a 32-year-old female with seronegative arthritis who presents for follow-up. Patient took Enbrel for February and March and it was working quite well for her arthritis. Apparently there was an insurance change and patient could not get her Enbrel refilled. She has been having pain in her hands and knees. Enbrel has been reauthorize. Advised patient to restart Enbrel as soon as possible. Follow-up in about 2 months Plan I spent 26 minutes reviewing patient's chart, evaluating patient, independently reviewing x-rays counseling patient and documenting in the chart Medications: Refilled etanercept (Enbrel SureClick) 50 mg subcut QWEEK 12 mL 1RF Coding Level of Care Code Est Pt Level 4 (80421) Diagnoses Rheumatoid arthritis of multiple sites with negative rheumatoid factor M06.09 Rheumatoid arthritis location: multiple sites Rheumatoid factor presence: without rheumatoid factor
[2023-06-22 16:11] VITALS: BP 138/76; PULSE 72; O2SAT 96
== END 2023-06-22 16:23 | disposition home or self-care (01) ==
PROVIDERS: PCP Internal Medicine; Referring Provider Internal Medicine; Visit Provider Student in an Organized Health Care Education/Training Program
DX: M06.09 Rheumatoid arthritis without rheumatoid factor, multiple sites (principal)
CPT/HCPCS: 99214

== ENCOUNTER 2023-07-17 09:48 | Outpatient (REF) | payer OTHER, SELFPAY | END 2023-07-17 09:49 | disposition home or self-care (01) | LOC: HO.HOSX 09:48 | PROVIDERS: Visit Provider Physician Assistant | DX: Z13.89 Encounter for screening for other disorder (principal) ==

== ENCOUNTER 2023-08-14 08:35 | Outpatient (REF) | payer OTHER, SELFPAY | END 2023-08-14 08:36 | disposition home or self-care (01) | LOC: HO.HOSX 08:35 | PROVIDERS: Visit Provider Physician Assistant | DX: Z13.89 Encounter for screening for other disorder (principal) ==

== ENCOUNTER 2023-09-08 13:54 | Outpatient (AMB) | payer OTHER, MEDICAID, SELFPAY ==
[2023-09-08 15:03] VITALS: BP 118/72; PULSE 114; TEMP 37.2; O2SAT 96
--- NOTE | 2023-09-08 15:03 | AM.OFFWIN_ITS ---
Intake Vital Signs 09/08/23 15:03 Height 5 ft 5 in BP 118/72 Blood Pressure Location Rt brachial Position Sitting Pulse 114 H Pulse Source Pulse Oximeter Temp 98.9 F Temp Source Oral Pulse Oximetry (%) 96 Oxygen Delivery Method Room Air Intake Visit Reasons: EP Asthma complications Intake Note: pt is here for asthma complication, difficulty breathing for the last 2 weeks Patient Tobacco Use Status: Never used Tobacco Allergies seafood Allergy (Unknown, Verified 09/08/23 15:03) Unknown Medication List - Last Reconciled 09/08/23 by Tristin Ocampo MD albuterol sulfate 90 mcg/actuation (Ventolin HFA) 2 puffs inhalation Q6H Breo Ellipta 100-25 mcg/dose (fluticasone furoate-vilanterol) 1 inh inhalation DAILY NS Enbrel SureClick (etanercept) 50 mg subcut QWEEK NS Do you need a note to return to daycare/school/sports/work: Yes HPI EP Asthma complications HPI Details Patient is a 32-year-old female with a history of asthma came in with chief complaint of asthma exacerbation Patient says that similar problem happened when she visited [place] Patient does allergies Patient says that insurance did not cover maintenance inhaler so she is only using ProAir She is coughing up green phlegm as well On examination today deep breath triggers coughing fit We gave her DuoNeb nebulizer treatment which helped her open up airways Patient is feeling better after the treatment lungs are clear I have sent prednisone 20 mg to be taken once a day for 5 days Albuterol vials sent for updraft machine at home And albuterol inhaler filled I would recommend that she discuss it with her PCP and figure out which maintenance inhaler insurance is covering. [facility] Medical History Annual physical exam Normal Pap smear Surgical History H/O hand surgery H/O left knee surgery H/O right knee surgery History of section Family History Father HTN (hypertension) Mother No problems noted. Other Family history of rheumatoid arthritis Social History Household Members: Spouse and Children Household Members Other:: , 11yo son with autism, 4 yo daughter Housing: House Alcohol intake: current Alcohol intake frequency: holidays/special occasions only Patient Tobacco Use Status: Never used Tobacco Current occupational status: employed Current occupation: Owns Daycare Cognitive needs: No Hearing needs: No Vision needs: Yes Review of Systems Const Denies chills and Denies fever(s) ENT Denies epistaxis and Denies nasal discharge Card Denies chest pain Resp Denies hemoptysis GI Denies diarrhea and Denies nausea Skin/Breast Denies rash Neuro Reports no additional complaints Psych Reports no additional complaints Endo Reports no additional complaints Physical Exam Vital Signs: Last Vital Signs Temp 98.9 F 09/08/23 15:03 Pulse 114 H 09/08/23 15:03 BP 118/72 09/08/23 15:03 Pulse Ox 96 09/08/23 15:03 Oxygen Delivery Method Room Air 09/08/23 15:03 Const General: cooperative, comfortable and no acute distress Orientation/consciousness: patient oriented x3 HEENT Head: Yes normocephalic Eyes General: appearance normal, both eyes and all related structures Neck Other: Supple Neck: Yes supple Resp Other: Bilateral wheezing and cough with deep breath, after treatment lungs are clear patient feeling much better Effort & Inspection: no stridor Cardio Rhythm: regular rhythm Heart sounds: S1 normal heart sound present and S2 normal heart sound present Skin General skin exam: turgor normal Neuro Other: Motor sensory intact General: patient oriented x3, tone normal and moves all extremities Extrem Other: No lower extremity swelling. Right lower extremity: no edema Left lower extremity: no edema Psych Other: Normal effect, speech clear Office Procedures Nebulizer Treatment Nebulizer Treatment [id number] RX initial, or Nebulizer Subsequent Treatment Office Meds albuterol sulfate 2.5 mg/3 mL (0.083 %) solution for nebulization Performing Provider: Tristin Ocampo MD Performing Location: [facility] Administered by: Cherie Prince on 09/08/23 15:44 Dose Route Admin Location Dispensed Lot Number Expiration Date NDC Scarifier Operator 2.5 mg inhalation 3 mL [id number] 06/10/25 98144-300-88 [employer] Assessment & Plan Assessment & Plan (1) Asthma exacerbation: Code(s): J45.901 - Unspecified asthma with (acute) exacerbation Qualifiers: Asthma persistence: persistent Asthma severity: moderate Qualified Code(s): J45.41 - Moderate persistent asthma with (acute) exacerbation Plan Patient is a 32-year-old female with a history of asthma came in with chief complaint of asthma exacerbation Patient says that similar problem happened when she visited [place] Patient does allergies Patient says that insurance did not cover maintenance inhaler so she is only using ProAir She is coughing up green phlegm as well On examination today deep breath triggers coughing fit We gave her DuoNeb nebulizer treatment which helped her open up airways Patient is feeling better after the treatment lungs are clear I have sent prednisone 20 mg to be taken once a day for 5 days Albuterol vials sent for updraft machine at home And albuterol inhaler filled I would recommend that she discuss it with her PCP and figure out which maintenance inhaler insurance is covering. Orders: Orders AMB Nebulizer Treatment Today J98.01 - Acute bronchospasm Medications: New prednisone 20 mg PO DAILY 5 tabs 0RF 5 days albuterol sulfate 0.63 mg (3 mL) inhalation QID PRN 90 mL 0RF shortness of breath or wheezing azithromycin Take 2 tablets today then 1 daily 250 mg PO ONCE 6 tabs 0RF 5 days J06.9 - Acute upper respiratory infection, unspecified Coding Level of Care Code Est Pt Level 4 (16407) Diagnoses Moderate persistent asthma with exacerbation J45.41 Asthma persistence: persistent Asthma severity: moderate CPT Codes Nebulizer Treatment - Nebulizer Treatment, initial or subsequent: 15285- Nebulizer/MDI RX initial, or Nebulizer Subsequent Treatment ([id number])
== END 2023-09-08 16:08 | disposition home or self-care (01) ==
PROVIDERS: PCP Internal Medicine; Visit Provider Internal Medicine
DX: J98.01 Acute bronchospasm (principal); J45.41 Moderate persistent asthma with (acute) exacerbation
CPT/HCPCS: 94640; 99214; J7613

== ENCOUNTER 2023-10-06 15:29 | Outpatient (REF) | payer OTHER, SELFPAY | END 2023-10-06 15:30 | disposition home or self-care (01) | LOC: HO.XRAY 15:29 | PROVIDERS: Absent Provider Student in an Organized Health Care Education/Training Program; PCP Internal Medicine; Visit Provider Physician Assistant | DX: Z13.89 Encounter for screening for other disorder (principal) ==

== ENCOUNTER 2023-10-06 15:45 | Outpatient (AMB) | payer OTHER, MEDICAID, SELFPAY ==
[2023-10-06 15:48] VITALS: BP 108/68; PULSE 80; O2SAT 95; BMI 24.2
--- NOTE | 2023-10-06 15:48 | MHC.OFFVIS ---
Vital Signs 10/06/23 15:48 Height 5 ft 5 in Weight 145 lb 8.081 oz BMI 24.2 BP 108/68 Blood Pressure Location Rt brachial Position Sitting Pulse 80 Pulse Source Pulse Oximeter Pulse Oximetry (%) 95 Oxygen Delivery Method Room Air Intake Visit Reasons: RA/CM Allergies seafood Allergy (Unknown, Verified 10/06/23 15:51) Unknown Medication List - Last Reconciled 10/06/23 by Shaggy Arita MD albuterol sulfate 90 mcg/actuation (Ventolin HFA) 2 puffs inhalation Q6H albuterol sulfate 0.63 mg (3 mL) inhalation QID PRN azithromycin 250 mg PO ONCE 5 days Breo Ellipta 100-25 mcg/dose (fluticasone furoate-vilanterol) 1 inh inhalation DAILY NS Enbrel SureClick (etanercept) 50 mg subcut QWEEK NS HPI Comments Details: 32-year-old female with seronegative RA returns for follow-up. She states that she only started getting her Enbrel about a month ago. She feels much better overall but continues to have multiple joint pain and stiffness especially both knees worse on the right and right hand. Still able to move. She is able to run. She takes ibuprofen about once a week as needed for joint pain. Initial history: This is a 31-year-old female with a seronegative arthritis who presents as a new patient. Patient was diagnosed with rheumatoid arthritis back in 2019 and was started on hydroxychloroquine, shortly after Humira was added which worked well for 10 months then it stopped working, she was switched to Enbrel in January of 2021 with excellent response. She took it for about 6 months then her neighborhood conservation officer left the practice. Currently patient is not on any DMARDs. She is having pain and stiffness mostly in her knees, she also gets intermittent pain in her right wrist and bilateral fingers associated with morning stiffness lasting 1 hour. Patient stated that her arthritis symptoms started when she was a child, she had surgery for her left knee, she also had surgery for her right wrist in 2019. She denies any history of DVT/PE. Denies history of recurrent miscarriages. [facility] Medical History Annual physical exam Normal Pap smear Surgical History H/O hand surgery H/O left knee surgery H/O right knee surgery History of section Family History Father HTN (hypertension) Mother No problems noted. Other Family history of rheumatoid arthritis Social History Household Members: Spouse and Children Household Members Other:: , 11yo son with autism, 4 yo daughter Housing: House Alcohol intake: current Alcohol intake frequency: holidays/special occasions only Patient Tobacco Use Status: Never used Tobacco Current occupational status: employed Current occupation: Owns Daycare Cognitive needs: No Hearing needs: No Vision needs: Yes Female Reproductive History Menstrual Total pregnancies: 2 Number of Living Children: 2 Review of Systems Musc Reports arthralgias, Reports joint swelling and Reports stiffness Physical Exam Vital Signs: Last Vital Signs Pulse 80 10/06/23 15:48 BP 108/68 10/06/23 15:48 Pulse Ox 95 10/06/23 15:48 Oxygen Delivery Method Room Air 10/06/23 15:48 BMI result Body Mass Index 24.2 Const General: cooperative, healthy appearing and comfortable Nutritional Appearance: average body habitus Limitations: no limitations HEENT Head: Yes normocephalic and Yes atraumatic Resp Effort & Inspection: normal respiratory effort and able to speak in complete sentences Extrem Other: Difficulty getting up from chair unassisted Right wrist tenderness and pain with full flexion and extension Few tender PIPs bilaterally No left wrist tenderness, swelling or pain with range of motion Normal range of motion of both elbows and shoulders with no pain bilateral knee crepitus Bilateral knee warmth Right knee pain with full flexion and extension Results Reviewed Results Reviewed: X-RAY KNEE 3 VIEW - W/O INJURY Exam Date: 04/18/2019 5:18 PM Ordering Diagnosis: Bilateral chronic knee pain ? History: Bilateral chronic knee pain. ? Bilateral knees, 3 views each: ? FINDINGS: Bony structures are radiographically intact. ? There is minor spurring of the medial femoral tibial compartment of each knee. ? There are bilateral knee joint effusions, moderate on the left and small on the right. ? Soft tissues are unremarkable. ? Impression: Bilateral knee joint effusions, left greater than right. ? Minor degenerative changes of both knees as described. ? Reading Radiologist: labs from 2019 ANAdirect /SSA/SSB/RF/CCP/C3/C4/Sm/CRYSTALLIZER OPERATOR all negative/normal I independently reviewed tib/fib x-rays from 06/19/2023 which showed no fractures Assessment & Plan Assessment & Plan (1) Rheumatoid arthritis: Comment: officially diagnosed in 2019 with seronegative RA however per patient she started having arthritis symptoms since age 2 when she had left knee surgery, she also had right wrist surgery in 2019. HCQ 05/2019-09/2021 lost her neighborhood conservation officer Garima 2020 secondary nonresponse switched to Enbrel 01/2021 effective then lost to follow-up 09/2021 Enbrel restarted 02/2023 effective, lapse in treatment d.t. insurace issues. restarted 08/2023 Code(s): M06.9 - Rheumatoid arthritis, unspecified Category: Medical Qualifiers: Rheumatoid arthritis location: multiple sites Rheumatoid factor presence: without rheumatoid factor Qualified Code(s): M06.09 - Rheumatoid arthritis without rheumatoid factor, multiple sites Plan: This is a 32-year-old female with seronegative arthritis who presents for follow-up. She has been on Enbrel regularly for the last 4 weeks. She feels improvement continues to have multiple painful and swollen joints on exam. Continue Enbrel regularly for 3 more months and we will reassess next visit. Advised patient to call the office if there is any inches obtaining her Enbrel regularly. Labs before next visit in 3 months Plan I spent 16 minutes reviewing patient's chart, evaluating patient, ordering diagnostic workup, counseling patient and documenting in the chart Orders: Orders Complete Blood Count Auto Diff 3 Months M06.09 - Rheumatoid arthritis without rheumatoid factor, multiple sites Erythrocyte Sedimentation Rate 3 Months M06.09 - Rheumatoid arthritis without rheumatoid factor, multiple sites Comprehensive Met. Panel 3 Months M06.09 - Rheumatoid arthritis without rheumatoid factor, multiple sites C Reactive Protein 3 Months M06.09 - Rheumatoid arthritis without rheumatoid factor, multiple sites Coding Level of Care Code Est Pt Level 3 (05818) Diagnoses Rheumatoid arthritis of multiple sites with negative rheumatoid factor M06.09 Rheumatoid arthritis location: multiple sites Rheumatoid factor presence: without rheumatoid factor
== END 2023-10-06 16:11 | disposition home or self-care (01) ==
PROVIDERS: PCP Internal Medicine; Visit Provider Student in an Organized Health Care Education/Training Program
DX: M06.09 Rheumatoid arthritis without rheumatoid factor, multiple sites (principal)
CPT/HCPCS: 99213

== ENCOUNTER 2023-11-13 12:08 | Outpatient (AMB) | payer OTHER, SELFPAY ==
[2023-11-13 12:09] VITALS: BP 116/70; PULSE 77; O2SAT 96; BMI 24.5
--- NOTE | 2023-11-13 12:09 | A.OFFPC_ITS ---
Vital Signs 11/13/23 12:09 Height 5 ft 5 in Weight 147 lb 2 oz BMI 24.5 BP 116/70 Blood Pressure Location Rt brachial Position Sitting Pulse 77 Pulse Source Pulse Oximeter Pulse Oximetry (%) 96 Oxygen Delivery Method Room Air Intake Visit Reasons: Physical Intake Note: Pt is here today for her Annual Physical. Allergies seafood Allergy (Unknown, Verified 11/13/23 12:13) Unknown Medication List - Last Reconciled 11/13/23 by Mitzi Espinal MD albuterol sulfate 90 mcg/actuation (Ventolin HFA) 2 puffs inhalation Q6H albuterol sulfate 0.63 mg (3 mL) inhalation QID PRN Breo Ellipta 100-25 mcg/dose (fluticasone furoate-vilanterol) 1 inh inhalation DAILY NS Enbrel SureClick (etanercept) 50 mg subcut QWEEK NS prednisone Take 3 tabs daily for 7 days, 2 tabs daily for 7 days, 1 tab daily for 7 days then stop Tobacco use date assessed: 11/13/23 Dental Screening Dental Screen Date: 11/13/23 Did you have a dental visit in the last 12 months?: Yes Did you have a dental problem in the last 6 months where you did not have access to dental care?: No Was dental information given to patient?: Patient has dentist HPI Physical HPI Details Pt presents for PE. She complains of chronic nonproductive cough intermittent wheezing worse with the physical activity slightly better since started taking Breo. Patient has been using albuterol daily she denies any seasonal allergy exposure to dust or smoke. Patient has been taking 30 mg of prednisone for flare up of RA for the last few days. [facility] Medical History Annual physical exam Normal Pap smear Surgical History H/O hand surgery H/O left knee surgery H/O right knee surgery History of section Family History Father HTN (hypertension) Mother No problems noted. Other Family history of rheumatoid arthritis Social History Household Members: Spouse and Children Household Members Other:: , 11yo son with autism, 4 yo daughter Housing: House Alcohol intake: current Alcohol intake frequency: holidays/special occasions only Patient Tobacco Use Status: Never used Tobacco e-Cigarette/Vaping Use: Never Used service: No Current occupational status: employed Current occupation: Owns Daycare Cognitive needs: No Hearing needs: No Vision needs: Yes Questionnaire PHQ-9 Over the last 2 weeks, how often have you been bothered by any of the following problems? 1. Little interest or pleasure in doing things: several days 2. Feeling down, depressed, or hopeless: several days 3. Trouble falling or staying asleep, or sleeping too much: nearly every day 4. Feeling tired or having little energy: nearly every day 5. Poor appetite or overeating: more than half the days 6. Feeling bad about yourself - or that you are a failure or have let yourself or your family down: not at all 7. Trouble concentrating on things, such as reading the newspaper or watching television: several days 8. Moving or speaking so slowly that other people could have noticed. Or the op posite - being so fidgety or restless that you have been moving around a lot more than usual: not at all 9. Thoughts that you would be better off or of hurting yourself in some way: not at all Total score: 11 Depression Screening Interpretation: Positive Depression Screening Done: Yes Source: Developed by Drs. Bao Mccormick, Janene Christianson, Teddy Sprague and colleagues, with an educational najma from [employer]. Thrive Questionnaire Date Thrive assessed: 11/13/23 I am a: Patient What is your living situation today?: I have a steady place to live Within the past 12 months, did the food you bought not last and you didn't have the money to get more?: Never true Within the past 12 months, did you worry whether your food would run out before you got money to buy more?: Never true Do you have trouble paying for medicines?: No Do you have trouble getting transportation to medical appointments?: No Do you have trouble paying your heating and electricity bill?: No Do you have trouble taking care of your child, family member or friend?: No Do you have trouble with day-to-day activities such as bathing, preparing meals, shopping, managing finances, etc.?: No Are you currently unemployed and looking for a job?: No Are you interested in more education?: No Please select the resources that you would like help with: None Currently or been in a relationship where the following occur: No concerns reported THRIVE Score: 0 AUDIT C Alcohol Use Questionnaire (AUDIT-C) 1. How often do you have a drink containing alcohol?: Never 3. How often do you have six or more drinks on one occasion?: Never Total Score: 0 Score Reviewed/Action Taken: Yes JOSE-7 AMB Questionnaire JOES-7 Date JOSE - 7 assessed: 11/13/23 Feeling nervous, anxious, or on edge: 2 = More than half the days Not being able to stop or control worryin = More than half the days Worrying too much about different things: 2 = More than half the days Trouble relaxin = More than half the days Being so restless that it is hard to sit still: 1 = Several days Becoming easily annoyed or irritable: 0 = Not at all Feeling afraid as if something awful might happen: 0 = Not at all Total JOSE-7 score (0-4 normal; 5-9 mild; 10-14 moderate; 15-21 severe): 9 Source: Developed by Drs. Bao Mccormick, Janene Christianson, Teddy Sprague and colleagues, with an educational najma from [employer]. JOSE-7 Assessment Billing JOSE-7 Assessment Tool: JOSE-7 Assessment 51031 Review of Systems Const All systems reviewed & are unremarkable except as noted in HPI and below Eyes Reports no additional complaints ENT Reports no additional complaints Card Reports no additional complaints and Reports dyspnea on exertion Resp Reports dyspnea on exertion GI Reports no additional complaints Reports no additional complaints Physical exam (Primary Care) Vital Signs: Last Vital Signs Pulse 77 11/13/23 12:09 BP 116/70 11/13/23 12:09 Pulse Ox 96 11/13/23 12:09 Oxygen Delivery Method Room Air 11/13/23 12:09 BMI result Body Mass Index 24.5 Tobacco/Smoking Status: Tobacco use Status Tobacco use date assessed 11/13/23 11/13/23 12:15 Patient Tobacco Use Status Never used Tobacco 11/13/23 12:15 e-Cigarette/Vaping Use Never Used 11/13/23 12:15 Depression Screening Interpretation: Positive Thrive Assessment: Date of Thrive Assessment Date Thrive assessed 11/13/23 11/13/23 12:15 Currently or been in a relationship where the following occur: No concerns reported Const General: no acute distress HENMT Head: Yes normal to inspection Ears: hearing grossly normal bilaterally Face and sinus: Yes normal facial exam Mouth: Normal oral and palatal mucosa present Throat: Yes posterior oropharynx normal Eyes General: appearance normal, both eyes and all related structures Neck Neck: Yes supple Resp Effort & Inspection: normal respiratory effort Auscultation: wheezes and diminished lung sounds Cardio Rhythm: regular rhythm Heart sounds: S1 normal heart sound present and S2 normal heart sound present GI Inspection: Yes normal to inspection Palpation (GI): Soft to palpation Percussion: Yes normal to percussion Auscultation: normal bowel sounds Assessment and Plan Assessment & Plan (1) Asthma: Code(s): J45.909 - Unspecified asthma, uncomplicated Plan: Increase Breo to 200 mcg and start montelukast. Continue albuterol as needed follow-up in 1 month (2) Annual physical exam: Code(s): Z00.00 - Encounter for general adult medical examination without abnormal findings Plan: Well-balanced diet regular physical activity discussed with the patient. She is up-to-date with the Pap smear by personal clothing laundry aide (3) Rheumatoid arthritis: Comment: officially diagnosed in 2019 with seronegative RA however per patient she started having arthritis symptoms since age 2 when she had left knee surgery, she also had right wrist surgery in 2019. HCQ 05/2019-09/2021 lost her manager risk management Garima 2020 secondary nonresponse switched to Enbrel 01/2021 effective then lost to follow-up 09/2021 Enbrel restarted 02/2023 effective, lapse in treatment d.t. insurace issues. restarted 08/2023 Code(s): M06.9 - Rheumatoid arthritis, unspecified Qualifiers: Rheumatoid arthritis location: multiple sites Rheumatoid factor presence: without rheumatoid factor Qualified Code(s): M06.09 - Rheumatoid arthritis without rheumatoid factor, multiple sites Plan: Follow-up with rheumatology Coding Level of Care Code Est Pt Prev Care 18-39y([id number]) Diagnoses Asthma J45.909 Annual physical exam Z00.00 Rheumatoid arthritis of multiple sites with negative rheumatoid factor M06.09 Rheumatoid arthritis location: multiple sites Rheumatoid factor presence: without rheumatoid factor Additional Codes JOSE-7 Assessment Billing - JOSE-7 Assessment Tool: JOSE-7 Assessment [id number] ([id number])
== END 2023-11-13 13:03 | disposition home or self-care (01) ==
PROVIDERS: PCP Internal Medicine; Visit Provider Internal Medicine
DX: Z00.00 Encounter for general adult medical examination without abnormal findings (principal); J45.909 Unspecified asthma, uncomplicated; M06.09 Rheumatoid arthritis without rheumatoid factor, multiple sites
CPT/HCPCS: 99395

== ENCOUNTER 2023-12-29 14:37 | Outpatient (REF) | payer OTHER, MEDICAID, SELFPAY ==
[2023-12-29 15:02] LABS: MANUAL DIFF FLAG NO
[2023-12-29 15:15] LABS: Basophils Percent Auto 0.5 % (0-2); Eosinophils Absolute Auto 0.1 X10*3/uL (0.0-0.4); Eosinophils Percent Auto 1.4 % (0-4); Hematocrit 37.6 % (37.0-47.0); Hemoglobin 12.8 g/dl (12.0-16.0); Imm Gran Abs Auto 0.02 X10*3/uL (0.00-0.03); Imm Gran Pct Auto 0.3 % (0.0-0.4); Lymphocytes Absolute Auto 1.2 X10*3/uL (1.2-4.9); Mean Corpuscular Hemoglobin 30.8 pg (27.0-33.0); Mean Corpuscular Volume 90.4 fL (80.0-98.0); Mean Platelet Volume 10.4 fL (9.4-12.3); Monocytes Absolute Auto 0.2 X10*3/uL (0.1-1.2); Monocytes Percent Auto 2.9 % (2-11); Neutrophils Absolute Auto 6.3 x10*3/uL (2.0-8.3); Neutrophils Percent Auto 79.9 % (45-73); Platelet Count 294 X10*3/uL (160-400); Red Blood Count 4.16 X10*6/uL (4.20-5.50); White Blood Count 7.9 X10*3/uL (4.8-10.8)
[2023-12-29 15:57] LABS: Alanine Aminotransferase 10 U/L (0-31); Albumin Level 4.1 g/dL (3.5-5.0); Alkaline Phosphatase 101 U/L (39-117); Anion Gap 9 (12-20); Aspartate Amino Transferase 13 U/L (5-31); Bilirubin Total 0.5 mg/dL (0.0-1.0); Blood Urea Nitrogen 12 mg/dL (9-16); C Reactive Protein < 0.04 mg/dL (< or = 0.50); Calcium 9.3 mg/dL (8.4-10.2); Carbon Dioxide 26 mmol/L (22-29); Chloride 107 mmol/L (96-108); Estimated Glomerular Filt Rate > 60; Glucose Random 111 mg/dL (60-115); Potassium 4.2 mmol/L (3.3-5.1); Sodium 138 mmol/L (135-145); Total Protein 6.9 g/dL (6.5-8.0)
[2023-12-29 16:01] LABS: Erythrocyte Sedimentation Rate 6 MM/HR (0-20)
== END 2023-12-29 14:38 | disposition home or self-care (01) ==
LOC: HO.LAB 14:37
PROVIDERS: PCP Internal Medicine; Visit Provider Student in an Organized Health Care Education/Training Program
DX: M06.09 Rheumatoid arthritis without rheumatoid factor, multiple sites (principal)
CPT/HCPCS: 36415; 80053; 85025; 85652; 86140

== ENCOUNTER 2024-01-06 15:54 | Outpatient (AMB) | payer OTHER, MEDICAID, SELFPAY ==
[2024-01-06 16:01] VITALS: BP 112/74; PULSE 62; O2SAT 98; BMI 23.3
--- NOTE | 2024-01-06 16:01 | A.OFFVIS_ITS ---
Vital Signs 01/06/24 16:01 Height 5 ft 5 in Weight 139 lb 15.896 oz BMI 23.3 BP 112/74 Blood Pressure Location Lt brachial Position Sitting Pulse 62 Pulse Source Pulse Oximeter Pulse Oximetry (%) 98 Oxygen Delivery Method Room Air Intake Visit Reasons: RA Intake Note: Patient presents today for RA follow up and lab review. She was last seen by Dr. Lyla crowder 10/06/23. Allergies seafood Allergy (Unknown, Verified 01/06/24 16:02) Unknown Medication List - Last Reconciled 01/06/24 by Shaggy Arita MD albuterol sulfate 0.63 mg (3 mL) inhalation QID PRN albuterol sulfate 90 mcg/actuation (Ventolin HFA) 2 puffs inhalation Q6H Breo Ellipta 100-25 mcg/dose (fluticasone furoate-vilanterol) 1 inh inhalation DAILY NS Enbrel SureClick (etanercept) 50 mg subcut QWEEK NS prednisone Take 3 tabs daily for 7 days, 2 tabs daily for 7 days, 1 tab daily for 7 days then stop HPI Comments Details: 33-year-old female with seronegative RA returns for follow-up. She is on Enbrel 50 mg subcutaneously once weekly. She states that she is not doing well. She does not believe the medicine is working. She continues to have morning stiffness of multiple joints. She has pain across her right hand knuckles as well as her right hand PIP is. Intermittent swelling. Has pain on the radial aspect of her right wrist. Initial history: This is a 31-year-old female with a seronegative arthritis who presents as a new patient. Patient was diagnosed with rheumatoid arthritis back in 2019 and was started on hydroxychloroquine, shortly after Humira was added which worked well for 10 months then it stopped working, she was switched to Enbrel in January of 2021 with excellent response. She took it for about 6 months then her residential appliance repair technician left the practice. Currently patient is not on any DMARDs. She is having pain and stiffness mostly in her knees, she also gets intermittent pain in her right wrist and bilateral fingers associated with morning stiffness lasting 1 hour. Patient stated that her arthritis symptoms started when she was a child, she had surgery for her left knee, she also had surgery for her right wrist in 2019. She denies any history of DVT/PE. Denies history of recurrent miscarriages. [facility] Medical History Annual physical exam Normal Pap smear Surgical History H/O hand surgery H/O left knee surgery H/O right knee surgery History of section Family History Father HTN (hypertension) Mother No problems noted. Other Family history of rheumatoid arthritis Social History Household Members: Spouse and Children Household Members Other:: , 11yo son with autism, 4 yo daughter Housing: House Alcohol intake: current Alcohol intake frequency: holidays/special occasions only Patient Tobacco Use Status: Never used Tobacco e-Cigarette/Vaping Use: Never Used service: No Current occupational status: employed Current occupation: Owns Daycare Cognitive needs: No Hearing needs: No Vision needs: Yes Female Reproductive History Menstrual Total pregnancies: 2 Number of Living Children: 2 Review of Systems Musc Reports arthralgias, Reports joint swelling and Reports stiffness Physical Exam Vital Signs: Last Vital Signs Pulse 62 01/06/24 16:01 BP 112/74 01/06/24 16:01 Pulse Ox 98 01/06/24 16:01 Oxygen Delivery Method Room Air 01/06/24 16:01 BMI result Body Mass Index 23.3 Const General: cooperative, healthy appearing and comfortable Nutritional Appearance: average body habitus Limitations: no limitations HEENT Head: Yes normocephalic and Yes atraumatic Resp Effort & Inspection: normal respiratory effort and able to speak in complete sentences Extrem Other: No wrist swelling or tenderness bilaterally Positive Ezequiel's test on the right Right 2nd through 5th MCP and PIP tenderness No elbow pain with flexion-extension bilaterally Normal range of motion of shoulders Bilateral knee crepitus No ankle swelling or tenderness bilaterally Patient global: 7 Physician global: 5 Tender joint count: 8 Swollen joint count: 0 Total CDAI: 20 Results Reviewed Results Reviewed: X-RAY KNEE 3 VIEW - W/O INJURY Exam Date: 04/18/2019 5:18 PM Ordering Diagnosis: Bilateral chronic knee pain ? History: Bilateral chronic knee pain. ? Bilateral knees, 3 views each: ? FINDINGS: Bony structures are radiographically intact. ? There is minor spurring of the medial femoral tibial compartment of each knee. ? There are bilateral knee joint effusions, moderate on the left and small on the right. ? Soft tissues are unremarkable. ? Impression: Bilateral knee joint effusions, left greater than right. ? Minor degenerative changes of both knees as described. ? Reading Radiologist: labs from 2019 [facility]NA[facility] /SSA/SSB/RF/CCP/C3/C4/Sm/COATING AND EMBOSSING UNIT OPERATOR all negative/normal I independently reviewed tib/fib x-rays from 06/19/2023 which showed no fractures Assessment & Plan Assessment & Plan (1) Rheumatoid arthritis: Comment: officially diagnosed in 2019 with seronegative RA however per patient she started having arthritis symptoms since age 2 when she had left knee surgery, she also had right wrist surgery in 2019. HCQ 05/2019-09/2021 lost her residential appliance repair technician Garima 2020 secondary nonresponse switched to Enbrel 01/2021 effective then lost to follow-up 09/2021 Enbrel restarted 02/2023 , lapse in treatment d.t. insurace issues. restarted 08/2023 ineffective Code(s): M06.9 - Rheumatoid arthritis, unspecified Category: Medical Qualifiers: Rheumatoid arthritis location: multiple sites Rheumatoid factor presence: without rheumatoid factor Qualified Code(s): M06.09 - Rheumatoid arthritis without rheumatoid factor, multiple sites Plan: This is a 33-year-old female with seronegative arthritis who presents for follow-up. She has been on Enbrel regularly for the last 4 months without improvement. She continues to have morning stiffness lasting an hour. Multiple tender joints on exam. We will need to change DMARDs. Discontinue Enbrel Discussed risks and benefits of Actemra. Patient agreed to proceed. Will start prior authorization for Actemra Labs before next visit in 3 months (2) High risk medication use: Code(s): Z79.899 - Other termite inspector (current) drug therapy Category: Medical Plan: Side effects of Actemra were discussed with the patient in detail including increased risk of infection, demyelinating disease, reactivation of latent TB, possible increased risk of solid and skin tumors. Patient fully aware. Advised patient to seek medical care [facility] if patient has an infection and advised patient to stop the medication until the infection is resolved. Patient denies history of diverticulitis (3) De Quervain's tenosynovitis, right: Code(s): M65.4 - Radial styloid tenosynovitis [de Quervain] Category: Medical Plan: Discussed nature of de Quervain tenosynovitis. It is an overuse tendonitis. Patient owns a daycare. Advised patient to rest her right hand as much as possible, wear a thumb spica splint. Script provided. Advised patient to apply Voltaren gel to affected area 4 times a day Plan I spent 25 minutes reviewing patient's chart, evaluating patient, ordering diagnostic workup, counseling patient and documenting in the chart Orders: Orders C Reactive Protein 3 Months M06.09 - Rheumatoid arthritis without rheumatoid factor, multiple sites Complete Blood Count Auto Diff 3 Months M06.09 - Rheumatoid arthritis without rheumatoid factor, multiple sites Comprehensive Met. Panel 3 Months M06.09 - Rheumatoid arthritis without rheumatoid factor, multiple sites Erythrocyte Sedimentation Rate 3 Months M06.09 - Rheumatoid arthritis without rheumatoid factor, multiple sites Medications: New [thumb spica] As directed 1 ea 0RF M65.4 - Radial styloid tenosynovitis [de Quervain] Coding Level of Care Code Est Pt Level 4 (03210) Diagnoses Rheumatoid arthritis of multiple sites with negative rheumatoid factor M06.09 Rheumatoid arthritis location: multiple sites Rheumatoid factor presence: without rheumatoid factor High risk medication use Z79.899 De Quervain's tenosynovitis, right M65.4
== END 2024-01-06 16:30 | disposition home or self-care (01) ==
PROVIDERS: PCP Internal Medicine; Visit Provider Student in an Organized Health Care Education/Training Program
DX: M06.09 Rheumatoid arthritis without rheumatoid factor, multiple sites (principal); Z79.899 Other long term (current) drug therapy; M65.4 Radial styloid tenosynovitis [de Quervain]
CPT/HCPCS: 99214

== ENCOUNTER → 2024-01-06 15:54 | Outpatient (BNVA) | payer OTHER, SELFPAY | PROVIDERS: PCP Internal Medicine; Visit Provider Student in an Organized Health Care Education/Training Program ==

== ENCOUNTER 2024-04-14 15:45 | Outpatient (REF) | payer OTHER, MEDICAID, SELFPAY ==
[2024-04-14 16:02] LABS: MANUAL DIFF FLAG NO
[2024-04-14 16:19] LABS: Basophils Absolute Auto 0.1 X10*3/uL (0.0-0.2); Basophils Percent Auto 0.6 % (0-2); Eosinophils Absolute Auto 0.8 X10*3/uL (0.0-0.4); Eosinophils Percent Auto 9.5 % (0-4); Hematocrit 36.1 % (37.0-47.0); Hemoglobin 12.5 g/dl (12.0-16.0); Imm Gran Abs Auto 0.02 X10*3/uL (0.00-0.03); Imm Gran Pct Auto 0.3 % (0.0-0.4); Lymphocytes Absolute Auto 2.3 X10*3/uL (1.2-4.9); Lymphocytes Percent Auto 29.4 % (20-40); Mean Corpuscular HGB Conc 34.6 g/dl (31.0-35.0); Mean Corpuscular Hemoglobin 30.8 pg (27.0-33.0); Mean Corpuscular Volume 88.9 fL (80.0-98.0); Monocytes Absolute Auto 0.5 X10*3/uL (0.1-1.2); Monocytes Percent Auto 6.3 % (2-11); Neutrophils Absolute Auto 4.3 x10*3/uL (2.0-8.3); Neutrophils Percent Auto 53.9 % (45-73); Platelet Count 342 X10*3/uL (160-400); Red Blood Count 4.06 X10*6/uL (4.20-5.50); Red Cell Distribution Width 11.7 % (11.0-16.0)
[2024-04-14 16:52] LABS: Alanine Aminotransferase 10 U/L (0-31); Alkaline Phosphatase 91 U/L (39-117); Anion Gap 10 (12-20); Aspartate Amino Transferase 16 U/L (5-31); Bilirubin Total 0.3 mg/dL (0.0-1.0); Blood Urea Nitrogen 14 mg/dL (9-16); C Reactive Protein 1.12 mg/dL (< or = 0.50); Calcium 9.4 mg/dL (8.4-10.2); Carbon Dioxide 28 mmol/L (22-29); Chloride 105 mmol/L (96-108); Estimated Glomerular Filt Rate > 60; Glucose Random 96 mg/dL (60-115); Sodium 139 mmol/L (135-145); Total Protein 7.3 g/dL (6.5-8.0)
[2024-04-14 17:02] LABS: Erythrocyte Sedimentation Rate 21 MM/HR (0-20)
== END 2024-04-14 15:46 | disposition home or self-care (01) ==
LOC: HO.LAB 15:45
PROVIDERS: PCP Internal Medicine; Visit Provider Student in an Organized Health Care Education/Training Program
DX: M06.09 Rheumatoid arthritis without rheumatoid factor, multiple sites (principal); Z79.899 Other long term (current) drug therapy
CPT/HCPCS: 36415; 80053; 85025; 85652; 86140

== ENCOUNTER 2024-04-14 16:07 | Outpatient (AMB) | payer OTHER, SELFPAY ==
--- NOTE | 2024-04-14 16:08 | MHC.OFFVIS ---
Vital Signs 04/14/24 16:12 Height 5 ft 5 in Weight 137 lb 2.04 oz BMI 22.8 BP 112/72 Blood Pressure Location Rt brachial Position Sitting Pulse 64 Pulse Source Pulse Oximeter Pulse Oximetry (%) 97 Oxygen Delivery Method Room Air Intake Visit Reasons: RA Intake Note: Patient presents for RA. Allergies seafood Allergy (Unknown, Verified 04/14/24 16:11) Unknown Medication List - Last Reconciled 04/14/24 by Shaggy Arita MD Actemra ACTPen (tocilizumab) 162 mg (0.9 mL) subcut Q2W NS albuterol sulfate 90 mcg/actuation (Ventolin HFA) 2 puffs inhalation Q6H albuterol sulfate 0.63 mg (3 mL) inhalation QID PRN Breo Ellipta 100-25 mcg/dose (fluticasone furoate-vilanterol) 1 inh inhalation DAILY NS [thumb spica As directed] HPI Comments Details: 33-year-old female with seronegative RA returns for follow-up. He just started the Actemra injection a few days ago. It took a long time for it to get approved. She states that she had a fever 2 days ago. She states that she feels achy all over especially in her right wrist and right knee. She has felt a sore throat especially towards the right side and felt a swollen lymph nodes in the right side of her neck. Initial history: This is a 31-year-old female with a seronegative arthritis who presents as a new patient. Patient was diagnosed with rheumatoid arthritis back in 2019 and was started on hydroxychloroquine, shortly after Humira was added which worked well for 10 months then it stopped working, she was switched to Enbrel in January of 2021 with excellent response. She took it for about 6 months then her district adviser left the practice. Currently patient is not on any DMARDs. She is having pain and stiffness mostly in her knees, she also gets intermittent pain in her right wrist and bilateral fingers associated with morning stiffness lasting 1 hour. Patient stated that her arthritis symptoms started when she was a child, she had surgery for her left knee, she also had surgery for her right wrist in 2019. She denies any history of DVT/PE. Denies history of recurrent miscarriages. [facility] Medical History Annual physical exam Normal Pap smear Surgical History H/O hand surgery H/O left knee surgery H/O right knee surgery History of section Family History Father HTN (hypertension) Mother No problems noted. Other Family history of rheumatoid arthritis Social History Household Members: Spouse and Children Household Members Other:: , 11yo son with autism, 4 yo daughter Housing: House Alcohol intake: current Alcohol intake frequency: holidays/special occasions only Patient Tobacco Use Status: Never used Tobacco e-Cigarette/Vaping Use: Never Used service: No Current occupational status: employed Current occupation: Owns Daycare Cognitive needs: No Hearing needs: No Vision needs: Yes Female Reproductive History Menstrual Total pregnancies: 2 Number of Living Children: 2 Review of Systems Const Reports fever(s) ENT Details: Sore throat Musc Reports arthralgias, Reports joint swelling and Reports stiffness Skin/Breast Denies rash Physical Exam Vital Signs: Last Vital Signs Pulse 64 04/14/24 16:12 BP 112/72 04/14/24 16:12 Pulse Ox 97 04/14/24 16:12 Oxygen Delivery Method Room Air 04/14/24 16:12 BMI result Body Mass Index 22.8 Const General: cooperative, healthy appearing and comfortable Nutritional Appearance: average body habitus Limitations: no limitations HEENT Head: Yes normocephalic and Yes atraumatic Neck Lymphatic: lymphadenopathy (Mildly tender to palpation) right anterior cervical Resp Effort & Inspection: normal respiratory effort and able to speak in complete sentences Extrem Other: Left wrist without swelling or tenderness or pain with full range of motion Mild right wrist tenderness and pain with range of motion but no swelling or warmth No MCP or PIP swelling or tenderness bilaterally Negative MCP squeeze test bilaterally Right elbow pain with full flexion and extension ,No warmth or swelling noted Right elbow, No tenderness at the common flexor origin or common extensor origin Normal range of motion of shoulders Mild right knee swelling posteriorly, likely a Callahan's cyst No ankle swelling or tenderness bilaterally Assessment & Plan Assessment & Plan (1) Rheumatoid arthritis: Comment: officially diagnosed in 2019 with seronegative RA however per patient she started having arthritis symptoms since age 2 when she had left knee surgery, she also had right wrist surgery in 2019. HCQ 05/2019-09/2021 lost her district adviser Garima 2020 secondary nonresponse switched to Enbrel 01/2021 effective then lost to follow-up 09/2021 Enbrel restarted 02/2023 , lapse in treatment d.t. insurace issues. restarted 08/2023 ineffective Code(s): M06.9 - Rheumatoid arthritis, unspecified Category: Medical Qualifiers: Rheumatoid arthritis location: multiple sites Rheumatoid factor presence: without rheumatoid factor Qualified Code(s): M06.09 - Rheumatoid arthritis without rheumatoid factor, multiple sites Plan: This is a 33-year-old female with seronegative arthritis who presents for follow-up. It took about 3 months for Actemra to get approved. Patient just received it last week and did her 1st injection about 5 days ago. Two days ago she started having a fever, as well as a sore throat, on exam she has a swollen right cervical lymph node. I think patient is flaring likely because she has been off of her Enbrel for about 3 months and she currently has a mild viral infection. Advised patient to resume her Actemra injections, it is due in about 10 days. Hopefully her symptoms would improve once she recovers from her mild viral infection Labs before next visit in 3 months (2) High risk medication use: Code(s): Z79.899 - Other director long term care (current) drug therapy Category: Medical Plan: Side effects of Actemra were discussed with the patient in detail including increased risk of infection, demyelinating disease, reactivation of latent TB, possible increased risk of solid and skin tumors. Patient fully aware. Advised patient to seek medical care [facility] if patient has an infection and advised patient to stop the medication until the infection is resolved. Patient denies history of diverticulitis Plan I spent 25 minutes reviewing patient's chart, evaluating patient, ordering diagnostic workup, counseling patient and documenting in the chart Orders: Orders Complete Blood Count Auto Diff 3 Months M06.09 - Rheumatoid arthritis without rheumatoid factor, multiple sites C Reactive Protein 3 Months M06.09 - Rheumatoid arthritis without rheumatoid factor, multiple sites Comprehensive Met. Panel 3 Months M06.09 - Rheumatoid arthritis without rheumatoid factor, multiple sites Erythrocyte Sedimentation Rate 3 Months M06.09 - Rheumatoid arthritis without rheumatoid factor, multiple sites Coding Level of Care Code Est Pt Level 4 (99595) Diagnoses Rheumatoid arthritis of multiple sites with negative rheumatoid factor M06.09 Rheumatoid arthritis location: multiple sites Rheumatoid factor presence: without rheumatoid factor High risk medication use Z79.899
[2024-04-14 16:12] VITALS: BP 112/72; PULSE 64; O2SAT 97; BMI 22.8
== END 2024-04-14 16:29 | disposition home or self-care (01) ==
PROVIDERS: PCP Internal Medicine; Visit Provider Student in an Organized Health Care Education/Training Program
DX: M06.09 Rheumatoid arthritis without rheumatoid factor, multiple sites (principal); Z79.899 Other long term (current) drug therapy
CPT/HCPCS: 99214

== ENCOUNTER 2024-07-04 08:38 | Outpatient (AMB) | payer OTHER, MEDICAID, SELFPAY ==
--- NOTE | 2024-07-04 08:50 | MHC.OFFWIV ---
Intake Vital Signs 07/04/24 08:51 Weight 142 lb BP 110/62 Blood Pressure Location Rt brachial Position Sitting Pulse 77 Pulse Source Pulse Oximeter Temp 98.6 F Temp Source Oral Pulse Oximetry (%) 96 Oxygen Delivery Method Room Air Intake Visit Reasons: EP asthma Intake Note: Patient here for SOB and was in contact with someone that has the FLU. pt has asthma Patient Tobacco Use Status: Never used Tobacco Allergies seafood Allergy (Unknown, Verified 07/04/24 08:51) Unknown Do you need a note to return to daycare/school/sports/work: Yes HPI HPI Comments History of Present Illness Details 33 y/o female patient who presents to the walk in clinic with c/o URI symptoms since Thursday. Reports Cough, SOB and wheezing. She was in-contact with a sick person (positive for Flu). [facility] Medical History (Updated 07/04/24 @ 09:30 by Rocio Morin NP) Cough Acute respiratory disease Annual physical exam Normal Pap smear Surgical History H/O hand surgery H/O left knee surgery H/O right knee surgery History of section Family History Father HTN (hypertension) Mother No problems noted. Other Family history of rheumatoid arthritis Social History Household Members: Spouse and Children Household Members Other:: , 11yo son with autism, 4 yo daughter Housing: House Alcohol intake: current Alcohol intake frequency: holidays/special occasions only Patient Tobacco Use Status: Never used Tobacco e-Cigarette/Vaping Use: Never Used service: No Current occupational status: employed Current occupation: Owns Daycare Cognitive needs: No Hearing needs: No Vision needs: Yes Review of Systems Const All systems reviewed & are unremarkable except as noted in HPI and below Physical Exam Vital Signs: Last Vital Signs Temp 98.6 F 07/04/24 08:51 Pulse 77 07/04/24 08:51 BP 110/62 07/04/24 08:51 Pulse Ox 96 07/04/24 08:51 Oxygen Delivery Method Room Air 07/04/24 08:51 Const General: cooperative and no acute distress Nutritional Appearance: well nourished Orientation/consciousness: patient oriented x3 HEENT Head: Yes normocephalic Ears: external ears normal and TM abnormal with fluid behind the TM bilateral and not mobile bilateral General nose exam: Nasal discharge present Face and sinus: Yes sinuses nontender Mouth: moist mucous membranes Throat: Yes uvula midline Resp Effort & Inspection: normal respiratory effort and able to speak in complete sentences Auscultation: clear to auscultation bilaterally, no crackles, no rales, no rhonchi and no wheezes Cardio Heart sounds: S1 normal heart sound present and S2 normal heart sound present Neuro General: patient oriented x3 Psych Speech and movement: Normal speech and movement present Assessment & Plan Assessment & Plan (1) Acute respiratory disease: Code(s): J06.9 - Acute upper respiratory infection, unspecified Plan: Ordered SARs. Acetaminophen for Pain relief. OTC cough remedies. (2) Cough: Code(s): R05.9 - Cough, unspecified Qualifiers: Cough type: acute Qualified Code(s): R05.1 - Acute cough Plan: Ordered SARs. Acetaminophen for Pain relief. OTC cough remedies. Orders: Orders SARS-CoV2/FLU/RSV Today J06.9 - Acute upper respiratory infection, unspecified Medications: New benzonatate 200 mg (2 x 100 mg) PO BID 60 caps 0RF R05.9 - Cough, unspecified dextromethorphan-guaifenesin 5-100 mg/5 mL (Robitussin Cough-Chest Congestion DM) 10 mL PO Q4-8H PRN 500 mL 0RF cough R05.9 - Cough, unspecified Coding Level of Care Code Est Pt Level 4 (92002) Diagnoses Acute respiratory disease J06.9 Acute cough R05.1 Cough type: acute Time Spent (min) 20
[2024-07-04 08:51] VITALS: BP 110/62; PULSE 77; TEMP 37; O2SAT 96
== END 2024-07-04 09:42 | disposition home or self-care (01) ==
PROVIDERS: PCP Internal Medicine; Visit Provider Nurse Practitioner Family
DX: J06.9 Acute upper respiratory infection, unspecified (principal); R05.1 Acute cough

== ENCOUNTER 2024-07-04 08:38 | Outpatient (REF) | payer OTHER, MEDICAID, SELFPAY ==
[2024-07-04 12:13] LABS: Influenza A PCR NEGATIVE (Negative); Influenza B PCR NEGATIVE (Negative); Resp Syncy Virus RNA Qual PCR NEGATIVE (Negative); SARS COV2 PCR INHOUSE NEGATIVE (Negative)
== END 2024-07-04 08:39 | disposition home or self-care (01) ==
LOC: HO.LAB 08:38
PROVIDERS: Nurse Practitioner Family; PCP Internal Medicine
DX: J06.9 Acute upper respiratory infection, unspecified (principal)
CPT/HCPCS: 0241U

== ENCOUNTER 2024-07-27 15:51 | Outpatient (AMB) | payer OTHER, MEDICAID, SELFPAY ==
[2024-07-27 15:57] VITALS: BP 108/62; PULSE 71; O2SAT 97; BMI 22.3
--- NOTE | 2024-07-27 15:57 | MHC.OFFVIS ---
Vital Signs 07/27/24 15:57 Height 5 ft 5 in Weight 134 lb BMI 22.3 BP 108/62 Blood Pressure Location Lt brachial Position Sitting Pulse 71 Pulse Source Pulse Oximeter Pulse Oximetry (%) 97 Oxygen Delivery Method Room Air Intake Visit Reasons: RA Intake Note: Patient presents for follow up on RA. She was last seen by Dr. Arita in April, on the . Allergies seafood Allergy (Unknown, Verified 07/27/24 16:01) Unknown Medication List - Last Reconciled 07/27/24 by Jenniffer Blackmon MD Actemra ACTPen (tocilizumab) 162 mg (0.9 mL) subcut Q2W NS albuterol sulfate 0.63 mg (3 mL) inhalation QID PRN albuterol sulfate 90 mcg/actuation (Ventolin HFA) 2 puffs inhalation Q6H benzonatate 200 mg (2 x 100 mg) PO BID Breo Ellipta 100-25 mcg/dose (fluticasone furoate-vilanterol) 1 inh inhalation DAILY NS dextromethorphan-guaifenesin 5-100 mg/5 mL (Robitussin Cough-Chest Congestion DM) 10 mL PO Q4-8H PRN [thumb spica As directed] HPI Comments Details: Patient is a 33-year-old female with asthma and seronegative rheumatoid arthritis here today for follow up Interval History: Patient last seen 04/14/[address] Arita. At that time she had been off of her Enbrel for a few months and had only started her Actemra about 2-3 days prior to the appointment. Because of this she was in significant amount of pain especially her right wrist and her hands. No changes were made to her medication at that time and she was encouraged to continue her Actemra and follow up Today patient reports that she is doing well on the Actemra with improvement in her joint pain Continues to have bilateral knee pain with stiffness in the morning however has a long history of knee issues with even surgery to bilateral knees for various reasons. Complaining of numbness and tingling to her hands and not being able to hold things and sometimes things falling out of her hands Rheumatologic History: Seronegative rheumatoid arthritis officially diagnosed in 2019 with seronegative RA however per patient she started having arthritis symptoms since age 2 when she had left knee surgery, she also had right wrist surgery in 2019. HCQ 05/2019-09/2021 lost her budget examiner Humira 2020 secondary nonresponse switched to Enbrel 01/2021 effective then lost to follow-up 09/2021 Enbrel restarted 02/2023 , lapse in treatment d.germaine. insurace issues. restarted 08/2023 ineffective Initial history: This is a 31-year-old female with a seronegative arthritis who presents as a new patient. Patient was diagnosed with rheumatoid arthritis back in 2019 and was started on hydroxychloroquine, shortly after Humira was added which worked well for 10 months then it stopped working, she was switched to Enbrel in January of 2021 with excellent response. She took it for about 6 months then her budget examiner left the practice. Currently patient is not on any DMARDs. She is having pain and stiffness mostly in her knees, she also gets intermittent pain in her right wrist and bilateral fingers associated with morning stiffness lasting 1 hour. Patient stated that her arthritis symptoms started when she was a child, she had surgery for her left knee, she also had surgery for her right wrist in 2018. She denies any history of DVT/PE. Denies history of recurrent miscarriages. Current Rheumatology Medication(s): Tocilizumab 162 mg every 2 weeks sc [facility] Medical History (Updated 07/27/24 @ 16:26 by Jenniffer Blackmon MD) Cough Acute respiratory disease Annual physical exam Normal Pap smear Surgical History H/O hand surgery H/O left knee surgery H/O right knee surgery History of section Family History Father HTN (hypertension) Mother No problems noted. Other Family history of rheumatoid arthritis Social History Household Members: Spouse and Children Household Members Other:: , 11yo son with autism, 4 yo daughter Housing: House Alcohol intake: current Alcohol intake frequency: holidays/special occasions only Patient Tobacco Use Status: Never used Tobacco e-Cigarette/Vaping Use: Never Used service: No Current occupational status: employed Current occupation: Owns Daycare Cognitive needs: No Hearing needs: No Vision needs: Yes Review of Systems Const Details: Review of Systems Constitutional: Denies fever, chills, weight loss ENT: Denies vision changes, eye pain or eye redness, dental caries, dry mouth GI: Denies nausea, vomiting, diarrhea, abdominal pain, change in BM Pulm: Denies SOB, TOVAR, hemoptysis, wheezing Cards: Denies chest pain, palpitations Skin: Denies Raynaud's, rash, nail changes, photosensitivity, EDUCATION COORDINATOR: Denies headaches, weakness, paresthesias, recurrent falls MSK: as per HPI All other systems reviewed and are unremarkable except noted above Physical Exam Vital Signs: Last Vital Signs Pulse 71 07/27/24 15:57 BP 108/62 07/27/24 15:57 Pulse Ox 97 07/27/24 15:57 Oxygen Delivery Method Room Air 07/27/24 15:57 BMI result Body Mass Index 22.3 Vital signs reviewed Physical Examination CONSTITUITIONAL Patient alert and cooperative. Well appearing and in no apparent painful distress HEENT Conjunctiva and sclera clear. ?Pupils equal round and reactive to light. ?No lymphadenopathy. ? CHEST/RESPIRATORY SYSTEM Normal respiratory effort and able to speak in complete sentences. ?Clear to auscultation bilaterally. ?No crackles, rales, rhonchi, wheezes heard. CARDIAC SYSTEM Regular rate and rhythm. ?S1 and S2 heard no murmurs. ?Radial pulses intact bilaterally MSK Hands: ?Good pre k lead teacher strength bilaterally. No deformities noted. ?No synovitis noted to the MCPs, PIPs or DIPs. ?No tenderness to palpation of these joints. Wrists: ?Full range of motion at the wrists without pain. ?No tenderness to palpation or synovitis noted to the wrists. Elbows: Full range of motion without pain. No tenderness, weakness, swelling, increased warmth or erythema. Shoulders: Full range of motion without pain. No tenderness, weakness, swelling, increased warmth or erythema. Hips: Full range of motion without pain. Hip bursa: No tenderness to palpation Knees: ?Full range of motion. ?No tenderness, swelling, increased warmth or erythema.? Bilateral crepitations felt Ankles: Full range of motion. ?No tenderness, swelling, increased warmth or erythema.? Feet: ?Negative squeeze test. ?No tenderness to palpation or swelling of the MTPs. Tender points:?No tenderness to palpation of the bilateral trapezius, supraspinatus, greater trochanters, anterior costochondral junctions, bilateral gluteal areas, bilateral suboccipital muscle insertions SKIN Skin intact without rashes. Results Reviewed Results Reviewed: Laboratory Tests 04/14/24 16:00 WBC 8.0 RBC 4.06 L Hgb 12.5 Hct 36.1 L Plt Count 342 ESR 21 H Sodium 139 Potassium 4.0 Chloride 105 Carbon Dioxide 28 BUN 14 Creatinine 0.75 AST 16 ALT 10 Alkaline Phosphatase 91 C-Reactive Protein 1.12 H Assessment & Plan Assessment & Plan (1) Rheumatoid arthritis: Comment: officially diagnosed in 2019 with seronegative RA however per patient she started having arthritis symptoms since age 2 when she had left knee surgery, she also had right wrist surgery in 2019. HCQ 05/2019-09/2021 lost her budget examiner Garima 2020 secondary nonresponse switched to Enbrel 01/2021 effective then lost to follow-up 09/2021 Enbrel restarted 02/2023 , lapse in treatment d.t. insurace issues. restarted 08/2023 ineffective Actemra started 04/2024 effective Code(s): M06.9 - Rheumatoid arthritis, unspecified Category: Medical Qualifiers: Rheumatoid arthritis location: multiple sites Rheumatoid factor presence: without rheumatoid factor Qualified Code(s): M06.09 - Rheumatoid arthritis without rheumatoid factor, multiple sites Plan: #Seronegative RA Patient is a 33-year-old female with seronegative rheumatoid arthritis here today for follow up. Currently in remission on Actemra Plan - Continue tocilizumab 162mg every 2 weeks - Labs today: CBC, CMP, ESR, CRP, hepatitis panel, T spot, lipid panel - RTC 4 months - Labs before visit: CBC, CMP, ESR, CRP, lipid panel (2) Bilateral post-traumatic osteoarthritis of knee: Code(s): M17.2 - Bilateral post-traumatic osteoarthritis of knee Plan: #Bilateral knee OA Patient with bilateral knee OA secondary to history of trauma. Discussed with patient that if needed she can get steroid injections (3) Carpal tunnel syndrome on both sides: Code(s): G56.03 - Carpal tunnel syndrome, bilateral upper limbs Plan: #?Carpal tunnel syndrome Patient with symptoms concerning for bilateral carpal tunnel syndrome we will check an EMG (4) Encounter for monitoring tocilizumab therapy: Code(s): Z51.81 - Encounter for therapeutic drug level monitoring; Z79.620 - meterman (current) use of immunosuppressive biologic Plan: #Long-term Use of Tocilizumab Discussed the risks and benefits of tocilizumab with the management of this patient's rheumatic condition. ? Benefits include decreased pain, improved mortality, improved quality of life Risks include LFT abnormalities, elevated triglycerides, GI perforations Contraindicated in a patient with history of diverticulitis Monitoring: ?CBC, CMP, triglycerides Plan I spent 32 minutes reviewing the record and labs, taking a history, examining the patient, discussing the treatment plan, ordering diagnostic work up and documenting in the medical record Orders: Orders Comprehensive Met. Panel 4 Months M06.09 - Rheumatoid arthritis without rheumatoid factor, multiple sites C Reactive Protein 4 Months M06.09 - Rheumatoid arthritis without rheumatoid factor, multiple sites Lipid Panel 4 Months M06.09 - Rheumatoid arthritis without rheumatoid factor, multiple sites Hepatitis A,B,C Profile Today M06.09 - Rheumatoid arthritis without rheumatoid factor, multiple sites T Spot TB Today M06.09 - Rheumatoid arthritis without rheumatoid factor, multiple sites NE electromyogram (EMG) Today G56.03 - Carpal tunnel syndrome, bilateral upper limbs Complete Blood Count Auto Diff 4 Months M06.09 - Rheumatoid arthritis without rheumatoid factor, multiple sites Erythrocyte Sedimentation Rate 4 Months M06.09 - Rheumatoid arthritis without rheumatoid factor, multiple sites Complete Blood Count Auto Diff Today M06.09 - Rheumatoid arthritis without rheumatoid factor, multiple sites Comprehensive Met. Panel Today M06.09 - Rheumatoid arthritis without rheumatoid factor, multiple sites C Reactive Protein Today M06.09 - Rheumatoid arthritis without rheumatoid factor, multiple sites Erythrocyte Sedimentation Rate Today M06.09 - Rheumatoid arthritis without rheumatoid factor, multiple sites Lipid Panel Today M06.09 - Rheumatoid arthritis without rheumatoid factor, multiple sites Medications: Refilled Actemra ACTPen (tocilizumab) 162 mg (0.9 mL) subcut Q2W 1.8 mL 4RF NS M06.09 - Rheumatoid arthritis without rheumatoid factor, multiple sites Coding Level of Care Code Est Pt Level 4 (36821) Complex EM visit Add On G2211 Diagnoses Rheumatoid arthritis of multiple sites with negative rheumatoid factor M06.09 Rheumatoid arthritis location: multiple sites Rheumatoid factor presence: without rheumatoid factor Bilateral post-traumatic osteoarthritis of knee M17.2 Carpal tunnel syndrome on both sides G56.03 Encounter for monitoring tocilizumab therapy Z51.81; Z79.620
--- OUTSIDE RECORDS SUMMARY | 2024-07-27 18:10 | XMS_ITS | Clinical Summary ---
Author Organization [facility] [facility] it Address [address] [place] [address] Care Team Providers Care Residential Lawn Specialist Name Role Phone Mitzi Espinal MD Primary Care Provider [phone] Surgical History Surgery Date Site/Laterality Comments KNEE SURGERY 1992 Left PROCEDURE: HISTORICAL KNEE SURGERY; COMMENT: septic arthritis KNEE SURGERY [id number] Bilateral PROCEDURE: HISTORICAL KNEE SURGERY; COMMENT: knee meniscus SECTION 2018 PROCEDURE: HISTORICAL DELIVERY WRIST SURGERY 11/10/2019 Right PROCEDURE: HISTORICAL WRIST SURGERY; COMMENT: NEOS Medical History Medical History Date Comments Generalized osteoarthrosis, involving multiple sites 04/07/2019 DX:Generalized osteoarthrosi s, involving multiple sites Psoriasis 04/07/2019 DX:Psoriasis Effusion of knee 05/20/2019 DX:Effusion of knee; COMMENT: Right knee, 02/18/2019 Family History Medical History Relation Name Comments Lung cancer Maternal Grandfather Diabetes Maternal Grandmother breast cancer Other: osteoarthritis Paternal Grandfather Diabetes Paternal Grandmother Relation Name Status Comments Maternal Grandfather Maternal Grandmother Paternal Grandfather Paternal Grandmother Social History Tobacco Use Types Packs/Day Years Used Date Smoking Tobacco: Never Smokeless Tobacco: Never Alcohol Use Standard Drinks/Week Comments Yes 0 (1 standard drink = 0.6 oz pur e alcohol) Comments Unknown Sex and Gender Information Value Date Recorded Sex Assigned at Not on file Legal Sex Female 7:32 PM EST Gender Identity Not on file Sexual Orientation Not on file Obstetrics History Plan of Treatment Health Maintenance Due Date Last Done Comments DTaP,Tdap,and Td Vaccines (1 - Tdap) 12/12/2007 Hepatitis B Vaccines (1 of 3 - 19+ 3-dose series) 12/12/2007 Cervical Cancer Screening: P ap Smear 2009 HIV Screening 03/15/2022 COVID-19 Vaccine (1 - 2023-2 5 season) 2023 Influenza Vaccine (Season Ended) 2024 01/25/2021, 01/04/2020 HIB Vaccines Aged Out No longer eligi ble based on patient's age to complete this topic HPV Vaccines Aged Out No longer eligi ble based on patient's age to complete this topic Hepatitis A Vaccines Aged Out No long er eligible based on patient's age to complete this topic IPV Vaccines Aged Out No longer eligi ble based on patient's age to complete this topic MMR Vaccines Aged Out No longer eligi ble based on patient's age to complete this topic Meningococcal ACWY Vaccine Aged Out N o longer eligible based on patient's age to complete this topic Meningococcal B Vaccine Aged Out No l onger eligible based on patient's age to complete this topic Pneumococcal Vaccine: Pediatrics (0 to 5 Years) and At-Risk Patients (6 to 64 Years) Aged Out No longer eligible b ased on patient's age to complete this topic RSV Immunization Patients Under 20 months Aged Out No longer eligible b ased on patient's age to complete this topic Varicella Vaccines Aged Out No longer eligible based on patient's age to complete this topic Care Teams Residential Lawn Specialist Relationship Specialty Start Date End Date Mitzi Espinal MD PCP - General Internal Medicine 03/23/19
== END 2024-07-27 16:24 | disposition home or self-care (01) ==
LOC: HO.RHE 15:51
PROVIDERS: PCP Internal Medicine; Visit Provider Student in an Organized Health Care Education/Training Program
DX: M06.09 Rheumatoid arthritis without rheumatoid factor, multiple sites (principal); M17.2 Bilateral post-traumatic osteoarthritis of knee; G56.03 Carpal tunnel syndrome, bilateral upper limbs; Z51.81 Encounter for therapeutic drug level monitoring; Z79.620 Long term (current) use of immunosuppressive biologic
CPT/HCPCS: 99214; G2211

== ENCOUNTER 2024-12-08 07:56 | Outpatient (REF) | payer OTHER, SELFPAY ==
[2024-12-08 13:38] LABS: Hematocrit 37.9 % (37.0-47.0); Hemoglobin 13.1 g/dl (12.0-16.0); Imm Gran Abs Auto 0.01 X10*3/uL (0.00-0.03); Imm Gran Pct Auto 0.2 % (0.0-0.4); Lymphocytes Absolute Auto 2.0 X10*3/uL (1.2-4.9); MANUAL DIFF FLAG SCAN; Mean Corpuscular HGB Conc 34.6 g/dl (31.0-35.0); Mean Corpuscular Hemoglobin 30.5 pg (27.0-33.0); Mean Corpuscular Volume 88.1 fL (80.0-98.0); NRBC Abs Auto 0.000 X10*3/uL (0.0-0.012); NRBC Pct Auto 0.0 /100WBC (0.0-0.2); Platelet Count 322 X10*3/uL (160-400); Red Blood Count 4.30 X10*6/uL (4.20-5.50); SCAN SMEAR FLAG 1; White Blood Count 4.3 X10*3/uL (4.8-10.8)
[2024-12-08 14:01] LABS: Alanine Aminotransferase 18 U/L (0-31); Albumin Level 4.5 g/dL (3.5-5.0); Alkaline Phosphatase 60 U/L (39-117); Anion Gap 11 (12-20); Aspartate Amino Transferase 29 U/L (5-31); Blood Urea Nitrogen 13 mg/dL (9-16); Calcium 9.1 mg/dL (8.4-10.2); Carbon Dioxide 26 mmol/L (22-29); Chloride 104 mmol/L (96-108); Cholesterol 215 mg/dL (<200); Estimated Glomerular Filt Rate > 60; HDL Cholesterol 58 mg/dL (>40); Potassium 3.6 mmol/L (3.3-5.1); Sodium 137 mmol/L (135-145); Total Protein 7.5 g/dL (6.5-8.0); Triglycerides 45 mg/dL (<150)
[2024-12-09 03:46] LABS: HBS Num1 20.83 mIU/mL (0-7.99); HBc Num1 0.07 S/CO (0.00-0.79); HBsAGNum1 0.39 S/CO (0.00-0.99); Hepatitis B Surface Antigen Negative (Negative); ~HepC Num1 0.10 S/CO (0.00-0.79); ~Hepatitis B Surface Antibody REACTIVE (Nonreactive); ~Hepatitis C Antibody Nonreactive (Nonreactive)
[2024-12-11 12:05] LABS: TS Negative Control Passed; TS Panel A 0; TS Panel B 0; TS Positive Control Passed; TSpotTB Negative (Negative)
== END 2024-12-08 07:57 | disposition home or self-care (01) ==
LOC: HO.HKASLDS 07:56
PROVIDERS: PCP Internal Medicine; Visit Provider Student in an Organized Health Care Education/Training Program
DX: Z51.81 Encounter for therapeutic drug level monitoring (principal); M06.09 Rheumatoid arthritis without rheumatoid factor, multiple sites; M65.311 Trigger thumb, right thumb; M17.2 Bilateral post-traumatic osteoarthritis of knee; Z79.620 Long term (current) use of immunosuppressive biologic; Z11.1 Encounter for screening for respiratory tuberculosis; Z11.59 Encounter for screening for other viral diseases
CPT/HCPCS: 20550; 36415; 80053; 80061; 85025; 85652; 86140; 86481; 86704; 86706; 86803; 87340; J2003; J3300

== ENCOUNTER 2024-12-08 07:56 | Outpatient (AMB) | payer OTHER, MEDICAID, SELFPAY ==
--- NOTE | 2024-12-08 07:59 | MHC.OFFVIS ---
Vital Signs 12/08/24 08:07 Height 5 ft 5 in Weight 134 lb 4.184 oz BMI 22.3 BP 115/70 Blood Pressure Location Rt brachial Position Sitting Pulse 62 Pulse Source Pulse Oximeter Pulse Oximetry (%) 98 Oxygen Delivery Method Room Air Intake Visit Reasons: RA Intake Note: Patient presents for RA follow up. Allergies seafood Allergy (Unknown, Verified 12/08/24 08:07) Unknown HPI Comments Details: Patient is a 33-year-old female with asthma and seronegative rheumatoid arthritis here today for follow up Interval History: Patient last seen 07/27/2024 with me - Actemra 162mg SC every 2 weeks - Patient reports that she is doing well on the Actemra with improvement in her joint pain - Continues to have bilateral knee pain with stiffness in the morning however has a long history of knee issues with even surgery to bilateral knees for various reasons. Offered steroid injections, patient deferred - Complaining of numbness and tingling to her hands and not being able to hold things and sometimes things falling out of her hands - EMG ordered to eval for CTS Today, - On Actemra 162mg SC every 2 weeks - Doing well overall - Still with bilateral knee pain - Has not done EMG yet - Hand pain with locking of her 1st and 2nd digit when she was braiding her daugter's hair - Owns a daycare Rheumatologic History: Seronegative rheumatoid arthritis officially diagnosed in 2019 with seronegative RA however per patient she started having arthritis symptoms since age 2 when she had left knee surgery, she also had right wrist surgery in 2019. 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 insurace issues. restarted 08/2023 ineffective Actemra started 04/2024 effective Initial history: This is a 31-year-old female with a seronegative arthritis who presents as a new patient. Patient was diagnosed with rheumatoid arthritis back in 2019 and was started on hydroxychloroquine, shortly after Humira was added which worked well for 10 months then it stopped working, she was switched to Enbrel in January of 2021 with excellent response. She took it for about 6 months then her welding machine assembler left the practice. Currently patient is not on any DMARDs. She is having pain and stiffness mostly in her knees, she also gets intermittent pain in her right wrist and bilateral fingers associated with morning stiffness lasting 1 hour. Patient stated that her arthritis symptoms started when she was a child, she had surgery for her left knee, she also had surgery for her right wrist in 2019. She denies any history of DVT/PE. Denies history of recurrent miscarriages. Current Rheumatology Medication(s): Tocilizumab 162 mg every 2 weeks sc [facility] Medical History (Updated 07/27/24 @ 16:26 by Jenniffer Blackmon MD) Cough Acute respiratory disease Annual physical exam Normal Pap smear Surgical History H/O hand surgery H/O left knee surgery H/O right knee surgery History of section Family History (Updated 12/08/24 @ 08:09 by RIDGE Lafleur) Father HTN (hypertension) Mother No problems noted. Maternal Grandmother Alzheimer dementia Other Family history of rheumatoid arthritis Social History Household Members: Spouse and Children Household Members Other:: , 11yo son with autism, 4 yo daughter Housing: House Alcohol intake: current Alcohol intake frequency: holidays/special occasions only Patient Tobacco Use Status: Never used Tobacco e-Cigarette/Vaping Use: Never Used service: No Current occupational status: employed Current occupation: Owns Daycare Cognitive needs: No Hearing needs: No Vision needs: Yes Review of Systems Const Details: Review of Systems Constitutional: Denies fever, chills, weight loss ENT: Denies vision changes, eye pain or eye redness, dental caries, dry mouth GI: Denies nausea, vomiting, diarrhea, abdominal pain, change in BM Pulm: Denies SOB, TOVAR, hemoptysis, wheezing Cards: Denies chest pain, palpitations Skin: Denies Raynaud's, rash, nail changes, photosensitivity, EDGE KITTER: Denies headaches, weakness, paresthesias, recurrent falls MSK: as per HPI All other systems reviewed and are unremarkable except noted above Physical Exam Exam Exam: Vital signs reviewed Physical Examination CONSTITUITIONAL Patient alert and cooperative. Well appearing and in no apparent painful distress MSK Hands Right Hand: Able to make a fist. No swelling or tenderness to palpation of the MCPs, PIPs or DIPs. No deformities noted. TTP of the A1 burke over the 1st and 2nd MCP in the palm Left Hand: Able to make a fist. No swelling or tenderness to palpation of the MCPs, PIPs or DIPs. No deformities noted. Wrists Right Wrist: Full ROM to flexion and extension. No swelling or TTP Left Wrist: Full ROM to flexion and extension. No swelling or TTP Elbows Right Elbow: Full ROM. No swelling or TTP. No TTP of the medial epicondyle. No TTP of the lateral epicondyle Left Elbow: Full ROM. No swelling or TTP. No TTP of the medial epicondyle. No TTP of the lateral epicondyle Shoulders Right shoulder: Full ROM. No swelling noted. No TTP of the AC joint. No TTP of the subacromial bursa. No TTP of the posterior shoulder Left shoulder: Full ROM. No swelling noted. No TTP of the AC joint. No TTP of the subacromial bursa. No TTP of the posterior shoulder Knees Right knee: Full ROM. No swelling noted. No TTP of the knee joint line. No TTP of pes anserine bursa Left knee: Full ROM. No swelling noted. No TTP of the knee joint line. No TTP of pes anserine bursa. Crepitations felt bilaterally Ankles Right ankle: Good ankle dorsiflexion and plantar flexion. No swelling. No TTP of the ankle joint Left ankle: Good ankle dorsiflexion and plantar flexion. No swelling. No TTP of the ankle joint Feet Right foot: Negative squeeze test Left foot: Negative squeeze test Tender points? No tenderness to palpation of the bilateral trapezius, supraspinatus, anterior costochondral junctions, bilateral suboccipital muscle insertions Vital Signs: Last Vital Signs Pulse 62 12/08/24 08:07 BP 115/70 12/08/24 08:07 Pulse Ox 98 12/08/24 08:07 Oxygen Delivery Method Room Air 12/08/24 08:07 BMI result Body Mass Index 22.3 Office Procedures AMB Joint Injection/Aspiration Joint Injection/Aspiration Details: Procedure was explained to the patient and informed consent was obtained. ? Risks associated with the procedure were discussed with the patient including but not limited to bleeding, infection, drug reactions and reactions to the topical anesthetic. Patient made aware of signs to look out for infectious complications. The area of interest was identified and confirmed with patient. ?This was subsequently cleaned with chlorhexidine x 2. ? The area was then anesthetized using ethyl chloride spray. 20 mg Kenalog with 0.5 cc 1% lidocaine was injected without issue. ?Minimal to no bleeding. ?Patient tolerated procedure. Primary Site: right thumb Prep: site was prepped using aseptic technique and ethochloride spray was applied Injected: 20 mg of, Kenalog, with 0.5 mL of and 1% plain lidocaine Procedure: The patient tolerated the procedure well Coding 34514 - Bicipital Groove Injection (Trigger Finger Injection ) Procedure code (CPT) selection complete AMB Joint Injection/Aspiration Joint Injection/Aspiration Details: Procedure was explained to the patient and informed consent was obtained. ? Risks associated with the procedure were discussed with the patient including but not limited to bleeding, infection, drug reactions and reactions to the topical anesthetic. Patient made aware of signs to look out for infectious complications. The area of interest was identified and confirmed with patient. ?This was subsequently cleaned with chlorhexidine x 2. ? The area was then anesthetized using ethyl chloride spray. 20 mg Kenalog with 0.5 cc 1% lidocaine was injected without issue. ?Minimal to no bleeding. ?Patient tolerated procedure. Primary Site: other (right index finger) Prep: site was prepped using aseptic technique and ethochloride spray was applied Injected: 20 mg of, Kenalog, with 0.5 mL of and 1% plain lidocaine Procedure: The patient tolerated the procedure well Coding 08392 - Bicipital Groove Injection (Right index trigger finger injection) Procedure code (CPT) selection complete Office Meds lidocaine (PF) 10 mg/mL (1 %) injection solution Performing Provider: Jenniffer Blackmon MD Performing [facility] [facility] Administered by: Jenniffer Blackmon MD on 12/08/24 14:28 Dose Route Admin Location Dispensed Lot Number Expiration Date [facility] Supervisor [employer] 0.5 mL Infiltration right thumb 2 mL [id number] 06/11/26 51278-242-81 [facility] Waste 2 mL 75 % Kenalog 40 mg/mL suspension for injection Performing Provider: Jenniffer Blackmon MD Performing Location: [facility] Administered by: Jenniffer Blackmon MD on 12/08/24 14:28 Dose Route Admin Location Dispensed Lot Number Expiration Date [facility] Supervisor [employer] 20 mg [employer] Inj. right thumb 1 mL [id number] 11/11/26 8775-1798-01 [facility] Total Dispensed Waste 1 mL 50 % lidocaine (PF) 10 mg/mL (1 %) injection solution Performing Provider: Jenniffer Blackmon MD Performing Location: [facility] Administered by: Jenniffer Blackmon MD on 12/08/24 14:31 Dose Route Admin Location Dispensed Lot Number Expiration Date [facility] Supervisor [employer] 0.5 mL Infiltration right index finger 2 mL [id number] 06/11/26 01493-227-52 [employer] Total Dispensed Waste 2 mL 75 % Kenalog 40 mg/mL suspension for injection Performing Provider: Jenniffer Blackmon MD Performing Location: [facility] Administered by: Jenniffer Blackmon MD on 12/08/24 14:31 Dose Route Admin Location Dispensed Lot Number Expiration Date [facility] Supervisor [employer] 20 mg Tendon Sheath Inj. right index finger 1 mL [id number] 11/11/26 3225-5109-59 [facility] Total Dispensed Waste 1 mL 50 % Results Reviewed Results Reviewed: Laboratory Tests 04/14/24 12/08/24 16:00 08:52 WBC 4.3 L RBC 4.30 Hgb 13.1 Hct 37.9 Plt Count 322 ESR 21 H Pending Sodium 137 Potassium 3.6 Chloride 104 Carbon Dioxide 26 BUN 13 Creatinine 0.66 AST 29 ALT 18 C-Reactive Protein 1.12 H < 0.04 Triglycerides 45 Cholesterol 215 H LDL Cholesterol, Calc 148 H HDL Cholesterol 58 Laboratory Tests 11/07/22 16:25 Hepatitis A IgM Ab Nonreactive Hep Bs Antigen Negative Hep Bs Antibody REACTIVE Hep B Core Total Ab Nonreactive Hepatitis C Ab (EIA) Nonreactive TB Test (T-Spot) Com Negative Assessment & Plan Assessment & Plan (1) Rheumatoid arthritis: Comment: officially diagnosed in 2019 with seronegative RA however per patient she started having arthritis symptoms since age 2 when she had left knee surgery, she also had right wrist surgery in 2019. HCQ 05/2019-09/2021 lost her welding machine assembler Garima 2020 secondary nonresponse switched to Enbrel 01/2021 effective then lost to follow-up 09/2021 Enbrel restarted 02/2023 , lapse in treatment d.t. insurace issues. restarted 08/2023 ineffective Actemra started 04/2024 effective Code(s): M06.9 - Rheumatoid arthritis, unspecified Category: Medical Qualifiers: Rheumatoid arthritis location: multiple sites Rheumatoid factor presence: without rheumatoid factor Qualified Code(s): M06.09 - Rheumatoid arthritis without rheumatoid factor, multiple sites Plan: #Seronegative RA Patient is a 33-year-old female with seronegative rheumatoid arthritis here today for follow up. Currently in remission on Actemra Plan - Continue tocilizumab 162mg every 2 weeks - RTC 4 months - Labs before visit: CBC, CMP, ESR, CRP, lipid panel (2) Trigger finger of right hand: Code(s): M65.30 - Trigger finger, unspecified finger Qualifiers: Trigger finger location: thumb Qualified Code(s): M65.311 - Trigger thumb, right thumb Plan: #Trigger finger Involving the right index and thumb fingers s/p injection x 2 Recommended splinting x 2 weeks post injection (3) Bilateral post-traumatic osteoarthritis of knee: Code(s): M17.2 - Bilateral post-traumatic osteoarthritis of knee Plan: #Bilateral knee OA Patient with bilateral knee OA secondary to history of trauma. Discussed with patient that if needed she can get steroid injections which have helped in the past but she is concerned about penitentiary side effects Recommended gel injections which she is interested in (4) Carpal tunnel syndrome on both sides: Code(s): G56.03 - Carpal tunnel syndrome, bilateral upper limbs Plan: #?Carpal tunnel syndrome Patient with symptoms concerning for bilateral carpal tunnel syndrome we will check an EMG (5) Encounter for monitoring tocilizumab therapy: Code(s): Z51.81 - Encounter for therapeutic drug level monitoring; Z79.620 - penitentiary (current) use of immunosuppressive biologic Plan: #Long-term Use of Tocilizumab Discussed the risks and benefits of tocilizumab with the management of this patient's rheumatic condition. ? Benefits include decreased pain, improved mortality, improved quality of life Risks include LFT abnormalities, elevated triglycerides, GI perforations Contraindicated in a patient with history of diverticulitis Monitoring: ?CBC, CMP, triglycerides Plan I spent 30 minutes reviewing the record and labs, taking a history, examining the patient, discussing the treatment plan, ordering diagnostic work up and documenting in the medical record Orders: Orders Complete Blood Count Auto Diff Today Z79.899 - Other penitentiary (current) drug therapy Comprehensive Met. Panel Today Z79.899 - Other penitentiary (current) drug therapy Erythrocyte Sedimentation Rate Today Z79.899 - Other penitentiary (current) drug therapy T Spot TB Today Z79.899 - Other penitentiary (current) drug therapy AMB Joint Injection/Aspiration Today M65.311 - Trigger thumb, right thumb C Reactive Protein Today Z79.899 - Other terminal supervisor (current) drug therapy Hepatitis B,C Profile Today Z79.899 - Other penitentiary (current) drug therapy Lipid Panel Today Z79.899 - Other penitentiary (current) drug therapy AMB Joint Injection/Aspiration Today M65.321 - Trigger finger, right index finger Coding Level of Care Code Est Pt Level 4 (33324) Complex EM visit Add On G2211 Diagnoses Rheumatoid arthritis of multiple sites with negative rheumatoid factor M06.09 Rheumatoid arthritis location: multiple sites Rheumatoid factor presence: without rheumatoid factor Trigger finger of right thumb M65.311 Trigger finger location: thumb Bilateral post-traumatic osteoarthritis of knee M17.2 Carpal tunnel syndrome on both sides G56.03 Encounter for monitoring tocilizumab therapy Z51.81; Z79.620 CPT Codes Coding - Joint 1: 49797 - Bicipital Groove Injection ([id number]) Coding - Joint 1: 38355 - Bicipital Groove Injection ([id number])
--- OUTSIDE RECORDS SUMMARY | 2024-12-08 07:59 | XMS_ITS | Clinical Summary ---
Author Organization [employer] [facility] it Address [address] [place] [address] Care Team Providers Care Library Media Technician Name Role Phone Mitzi Espinal MD Primary Care Provider [phone] Surgical History Surgery Date Site/Laterality Comments KNEE SURGERY 1992 Left PROCEDURE: HISTORICAL KNEE SURGERY; COMMENT: septic arthritis KNEE SURGERY [id number] Bilateral PROCEDURE: HISTORICAL KNEE SURGERY; COMMENT: knee [...] Cervical Cancer Screening: P ap Smear 2009 COVID-19 Vaccine (1 - 2023-2 5 season) 2023 Depression Screening 04/13/2024 Influenza Vaccine (#1) 2024 1, 01/04/2020 HIB Vaccines Aged Out No longer [...] 5 Years) and At-Risk Patients (6 to 49 Years) Aged Out No longer eligible b ased on patient's age to complete this topic RSV Immunization Patients Under 20 months Aged Out No longer eligible b ased on patient's age to complete this topic Varicella Vaccines Aged Out No longer eligible based on patient's age to complete this topic Care Teams Library Media Technician Relationship Specialty Start Date End Date Mitzi Espinal MD PCP - General Internal Medicine 03/23/19
[2024-12-08 08:07] VITALS: BP 115/70; PULSE 62; O2SAT 98; BMI 22.3
== END 2024-12-08 08:47 | disposition home or self-care (01) ==
LOC: HO.RHES 07:56
PROVIDERS: PCP Internal Medicine; Visit Provider Student in an Organized Health Care Education/Training Program
DX: M06.09 Rheumatoid arthritis without rheumatoid factor, multiple sites (principal); M65.311 Trigger thumb, right thumb; M65.321 Trigger finger, right index finger; M17.2 Bilateral post-traumatic osteoarthritis of knee; G56.03 Carpal tunnel syndrome, bilateral upper limbs; Z51.81 Encounter for therapeutic drug level monitoring; Z79.620 Long term (current) use of immunosuppressive biologic
CPT/HCPCS: 20550; 99214